=== PATIENT | female | born 1975 | race Caucasian/White ===

== ENCOUNTER 2021-10-31 12:13 | Outpatient (REF) | payer OTHER, SELFPAY ==
[2021-10-31 15:33] LABS: Influenza A PCR NEGATIVE (Negative); Influenza B PCR NEGATIVE (Negative); Resp Syncy Virus RNA Qual PCR NEGATIVE (Negative); SARS COV2 PCR INHOUSE POSITIVE (Negative)
== END 2021-10-31 12:14 | disposition home or self-care (01) ==
LOC: HO.LAB 12:13
PROVIDERS: Visit Provider Hospitalist
DX: R68.89 Other general symptoms and signs (principal); Z20.822 Contact with and (suspected) exposure to COVID-19
CPT/HCPCS: 0241U

== ENCOUNTER 2022-02-21 14:37 | Outpatient (REF) | payer OTHER, SELFPAY ==
[2022-02-21 15:11] LABS: Appearance Urine CLOUDY; Color Urine DK YELLOW; Glucose Urine UA NEG (NEG); Leukocyte Esterase Urine NEG (NEG); Nitrite Urine NEG (NEG); Specific Gravity - Urine 1.025 (1.005-1.025); Urine Blood 2+ (NEG); Urine Ketones 5 MG/DL (NEG); Urine Protein TRACE MG/DL (NEG-TRACE)
[2022-02-21 15:23] LABS: Bacteria Urine 1+ /LPF; Mucus Urine 4+ /LPF; RBC Urine 0-2 /HPF (0); Squamous Epithelial Cell Urine 3+ /LPF
[2022-02-21 15:24] LABS: Calcium Oxalate Crystals Urine 3+ /LPF; Granular Casts Urine 0-2 /LPF
== END 2022-02-21 14:38 | disposition home or self-care (01) ==
LOC: HO.LNP 14:37
PROVIDERS: Visit Provider Hospitalist
DX: Z00.00 Encounter for general adult medical examination without abnormal findings (principal)
CPT/HCPCS: 81001; 81003

== ENCOUNTER 2022-03-09 07:04 | Outpatient (REF) | payer OTHER, SELFPAY ==
[2022-03-09 11:12] LABS: Appearance Urine CLEAR; Color Urine YELLOW; Glucose Urine UA NEG (NEG); Leukocyte Esterase Urine TRACE (NEG); Nitrite Urine NEG (NEG); Specific Gravity - Urine 1.015 (1.005-1.025); Urine Blood NEG (NEG); Urine Ketones NEG (NEG); Urine Protein NEG (NEG-TRACE)
[2022-03-09 11:23] LABS: MANUAL DIFF FLAG NO
[2022-03-09 11:30] LABS: Basophils Absolute Auto 0.1 X10*3/uL (0.0-0.2); Basophils Percent Auto 0.6 % (0-2); Eosinophils Absolute Auto 0.2 X10*3/uL (0.0-0.4); Eosinophils Percent Auto 1.9 % (0-4); Hematocrit 31.8 % (37.0-47.0); Hemoglobin 9.2 g/dl (12.0-16.0); Imm Gran Abs Auto 0.02 X10*3/uL (0.00-0.03); Imm Gran Pct Auto 0.3 % (0.0-0.4); Lymphocytes Absolute Auto 1.6 X10*3/uL (1.2-4.9); Lymphocytes Percent Auto 20.1 % (20-40); Mean Corpuscular HGB Conc 28.9 g/dl (31.0-35.0); Mean Corpuscular Hemoglobin 18.5 pg (27.0-33.0); Mean Platelet Volume 9.9 fL (9.4-12.3); Monocytes Absolute Auto 0.5 X10*3/uL (0.1-1.2); Monocytes Percent Auto 6.3 % (2-11); Neutrophils Absolute Auto 5.6 x10*3/uL (2.0-8.3); Neutrophils Percent Auto 70.8 % (45-73); Platelet Count 434 X10*3/uL (160-400); Red Blood Count 4.96 X10*6/uL (4.20-5.50); Red Cell Distribution Width 21.6 % (11.0-16.0); White Blood Count 7.9 X10*3/uL (4.8-10.8)
[2022-03-09 11:31] LABS: Mean Corpuscular Volume 64.1 fL (80.0-98.0)
[2022-03-09 11:40] LABS: Alanine Aminotransferase 13 U/L (0-31); Albumin Level 4.1 g/dL (3.5-5.0); Alkaline Phosphatase 80 U/L (39-117); Anion Gap 11 (12-20); Aspartate Amino Transferase 11 U/L (5-31); Bilirubin Total 0.3 mg/dL (0.0-1.0); Blood Urea Nitrogen 12 mg/dL (9-16); Calcium 9.1 mg/dL (8.4-10.2); Carbon Dioxide 25 mmol/L (22-29); Chloride 107 mmol/L (96-108); Cholesterol 210 mg/dL; Estimated Glomerular Filt Rate > 60; Glucose Fasting 114 mg/dL (60-99); HDL Cholesterol 42 mg/dL; LDL Cholesterol Calculated 149 mg/dl; Potassium 4.3 mmol/L (3.3-5.1); Sodium 139 mmol/L (135-145); Total Protein 6.9 g/dL (6.5-8.0); Triglycerides 98 mg/dL
[2022-03-09 11:50] LABS: Bacteria Urine 2+ /LPF; Calcium Oxalate Crystals Urine TRACE /LPF; Squamous Epithelial Cell Urine 2+ /LPF
[2022-03-09 11:51] LABS: RBC Urine 0 /HPF (0)
[2022-03-09 12:04] LABS: TSH reflex Free T4 1.74 uIU/mL (0.32-4.0)
== END 2022-03-09 07:05 | disposition home or self-care (01) ==
LOC: HO.WFDLDS 07:04
PROVIDERS: PCP Hospitalist; Visit Provider Family Medicine
DX: Z00.00 Encounter for general adult medical examination without abnormal findings (principal); Z13.220 Encounter for screening for lipoid disorders; Z13.29 Encounter for screening for other suspected endocrine disorder
CPT/HCPCS: 36415; 80053; 80061; 81001; 84443; 85025

== ENCOUNTER 2022-03-12 08:00 | Outpatient (REF) | payer OTHER, SELFPAY ==
[2022-03-12 11:35] LABS: Hematocrit 31.3 % (37.0-47.0); Mean Corpuscular HGB Conc 28.8 g/dl (31.0-35.0); Mean Corpuscular Hemoglobin 18.4 pg (27.0-33.0); Mean Platelet Volume 9.8 fL (9.4-12.3); Platelet Count 437 X10*3/uL (160-400); Red Blood Count 4.89 X10*6/uL (4.20-5.50); Red Cell Distribution Width 21.5 % (11.0-16.0); White Blood Count 6.9 X10*3/uL (4.8-10.8)
[2022-03-12 11:48] LABS: Appearance Urine HAZY; Color Urine YELLOW; Glucose Urine UA NEG (NEG); Leukocyte Esterase Urine TRACE (NEG); Nitrite Urine NEG (NEG); PH 6.5 (5.0-8.0); Specific Gravity - Urine 1.015 (1.005-1.025); Urine Blood NEG (NEG); Urine Ketones NEG (NEG); Urine Protein NEG (NEG-TRACE)
[2022-03-12 12:08] LABS: Iron 18 mcg/dL (30-160); Percent Iron Saturation 4 % (15-50); Total Iron Binding Capacity 484 mcg/dL (228-428); Unsaturated Iron Binding 466 ug/dL
[2022-03-12 12:31] LABS: Folate 10.3 ng/mL (> or = 4.0); Vitamin B12 469 pg/mL (200-900)
[2022-03-12 13:23] LABS: Bacteria Urine 3+ /LPF; RBC Urine 0 /HPF (0); Renal Epithelial Cells Urine 2+ /LPF; Squamous Epithelial Cell Urine 3+ /LPF
== END 2022-03-12 08:01 | disposition home or self-care (01) ==
LOC: HO.WFDLDS 08:00
PROVIDERS: Visit Provider Hospitalist
DX: Z00.00 Encounter for general adult medical examination without abnormal findings (principal); D64.9 Anemia, unspecified
CPT/HCPCS: 36415; 81001; 81003; 82607; 82746; 83540; 85027

== ENCOUNTER 2022-03-20 07:56 | Outpatient (REF) | payer OTHER, SELFPAY ==
[2022-03-20 11:33] LABS: Hematocrit 33.2 % (37.0-47.0); Hemoglobin 9.5 g/dl (12.0-16.0); Mean Corpuscular HGB Conc 28.6 g/dl (31.0-35.0); Mean Corpuscular Hemoglobin 18.9 pg (27.0-33.0); Mean Platelet Volume 10.4 fL (9.4-12.3); Platelet Count 441 X10*3/uL (160-400); Red Blood Count 5.03 X10*6/uL (4.20-5.50); Red Cell Distribution Width 24.4 % (11.0-16.0); White Blood Count 8.2 X10*3/uL (4.8-10.8)
[2022-03-20 11:40] LABS: Appearance Urine CLEAR; Color Urine YELLOW; Glucose Urine UA NEG (NEG); Leukocyte Esterase Urine NEG (NEG); Nitrite Urine NEG (NEG); Specific Gravity - Urine 1.025 (1.005-1.025); Urine Blood NEG (NEG); Urine Ketones NEG (NEG); Urine Protein NEG (NEG-TRACE)
== END 2022-03-20 07:57 | disposition home or self-care (01) ==
LOC: HO.WFDLDS 07:56
PROVIDERS: Visit Provider Hospitalist
DX: Z00.00 Encounter for general adult medical examination without abnormal findings (principal)
CPT/HCPCS: 36415; 81003; 85027

== ENCOUNTER 2023-05-15 08:25 | Outpatient (AMB) | payer OTHER, SELFPAY ==
--- NOTE | 2023-05-15 08:31 | A.OFFPC_ITS ---
Vital Signs 05/15/23 08:32 Height 5 ft 2 in Weight 189 lb BMI 34.6 BP 132/78 Blood Pressure Location Lt brachial Position Sitting Respiration 14 Pulse 89 Pulse Source Pulse Oximeter Temp 98.9 F Temp Source Temporal Artery Scan Pulse Oximetry (%) 98 Oxygen Delivery Method Room Air Intake Visit Reasons: 1 mos anxiety, depression Intake Note: Patient is here to follow up on her anxiety and depression and states the medication increase is doing well. Patient states she is still struggling with sleeping at night due to life stressors. Foreclosure Paralegal Required: No Allergies No Known Allergies Allergy (Verified 05/15/23 08:43) Medication List - Last Reconciled 05/15/23 by Bunny Lamas CNP buspirone 20 mg (2 x 10 mg) PO TID 30 days duloxetine 60 mg PO DAILY 30 days melatonin 3 mg PO BEDTIME Tobacco use date assessed: 04/17/23 Dental Screening Dental Screen Date: 05/15/23 Did you have a dental visit in the last 12 months?: No Did you have a dental problem in the last 6 months where you did not have access to dental care?: No Was dental information given to patient?: Patient has dentist HPI HPI Comments History of Present Illness Details 47-year-old female presents for anxiety and depression follow-up She was evaluated for these symptoms on 04/17/2023. Buspirone was increased to 20 mg 3 times a day. She is on duloxetine 60 mg daily. 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 She was also referred to a therapist. She reports significant improvement with increased Buspirone dose. She states that she takes her medications as prescribed. She reports interrupted sleep and vivid dreams. She takes melatonin at bedtime with improvement. She admits to using her phone and watching TV while in bed. She stretches and walks for exercise. She notes that she was contacted by Gynecology and therapist but she has not called back to schedule an appointment. [facility] Medical History Hepatitis C Social History Housing: House Patient Tobacco Use Status: Former Tobacco user Tobacco use type: Cigarette Cigarettes Per Day: 10 Years Smoked: 13 e-Cigarette/Vaping Use: Currently Using Second Hand Smoke Exposure: No service: No Current occupational status: employed Current occupation: [employer] Current occupational exposures/hazards: No Cognitive needs: No Hearing needs: No Vision needs: No Questionnaire PHQ-9 Over the last 2 weeks, how often have you been bothered by any of the following problems? 1. Little interest or pleasure in doing things: several days 2. Feeling down, depressed, or hopeless: several days 3. Trouble falling or staying asleep, or sleeping too much: nearly every day 4. Feeling tired or having little energy: more than half the days 5. Poor appetite or overeating: several days 6. Feeling bad about yourself - or that you are a failure or have let yourself or your family down: more than half the days 7. Trouble concentrating on things, such as reading the newspaper or watching television: nearly every day 8. Moving or speaking so slowly that other people could have noticed. Or the opposite - being so fidgety or restless that you have been moving around a lot more than usual: several days 9. Thoughts that you would be better off or of hurting yourself in some w ay: not at all Total score: 14 Depression Screening Interpretation: Positive Depression Screening Follow-up: Existing condition and In treatment 61663 - PHQ-9 Billing: Yes Source: Developed by Drs. Humberto Gutiérrez, Gail Jauregui, Don Madsen and colleagues, with an educational jessika from [employer]. Thrive Questionnaire Date Thrive assessed: 02/21/22 JUAN-7 AMB Questionnaire JUAN-7 Date JUAN - 7 assessed: 05/15/23 Feeling nervous, anxious, or on edge: 1 = Several days Not being able to stop or control worryin = Nearly every day Worrying too much about different things: 3 = Nearly every day Trouble relaxin = Nearly every day Being so restless that it is hard to sit still: 2 = More than half the days Becoming easily annoyed or irritable: 2 = More than half the days Feeling afraid as if something awful might happen: 2 = More than half the days Total JUAN-7 score (0-4 normal; 5-9 mild; 10-14 moderate; 15-21 severe): 16 Source: Developed by Drs. Humberto Gutiérrez, Don Schafernke and colleagues, with an educational jessika from [employer]. JUAN-7 Assessment Billing JUAN-7 Assessment Tool: JUAN-7 Assessment 54753 Review of Systems Const Details: Const Denies chills, Denies fatigue, Denies fever(s), Denies headache(s) and Denies weakness ENT Denies dizziness and Denies headache(s) Card Denies chest pain, Denies lightheadedness, Denies dyspnea and Denies other (Palpitations) Resp Denies cough, Denies dyspnea, Denies wheezing and Denies other ( shortness of breath) GI Denies abdominal pain, Denies melena, Denies hematochezia, Denies change in bowel habits, Denies dyspepsia and Denies nausea Denies hematuria and Denies dysuria Musc Denies abnormal gait, Denies myalgias, Denies arthralgias, Denies numbness and Denies tingling Skin/Breast Denies rash, Denies unusual bruising and Denies wounds Neuro Denies abnormal gait, Denies dizziness, Denies headache(s), Denies memory loss, Denies numbness, Denies Sensory deficit (Neuro), Denies tingling and Denies weakness Psych Reports anxiety and Reports depression, Denies memory loss Endo Denies fatigue Aller/Immun Denies wheezing Physical exam (Primary Care) Vital Signs: Last Vital Signs Temp 98.9 F 05/15/23 08:32 Pulse 89 05/15/23 08:32 Resp 14 05/15/23 08:32 BP 132/78 05/15/23 08:32 Pulse Ox 98 05/15/23 08:32 Oxygen Delivery Method Room Air 05/15/23 08:32 BMI result Body Mass Index 34.6 Tobacco/Smoking Status: Tobacco use Status Tobacco use date assessed 04/17/23 05/15/23 08:38 Patient Tobacco Use Status Former Tobacco user 05/15/23 08:38 Tobacco use type Cigarette 05/15/23 08:38 e-Cigarette/Vaping Use Currently Using 05/15/23 08:38 PHQ-9: PHQ-9 Score PHQ-9: Total score 14 05/15/23 08:49 Depression Screening Interpretation: Positive Depression Screening Follow-up: Existing condition and In treatment Thrive Assessment: Date of Thrive Assessment Date Thrive assessed 02/21/22 05/15/23 08:38 Const Other: General: no acute distress and well developed Nutritional Appearance: well nourished Orientation/consciousness: patient oriented x3 HENMT Head: Yes normocephalic and Yes atraumatic Eyes General: appearance normal, both eyes and all related structures Pupils: Equal, round and reactive pupils present EOM: EOMs intact bilaterally Resp Effort & Inspection: normal respiratory effort Auscultation: clear to auscultation bilaterally Cardio Rate: regular rate Rhythm: regular rhythm Heart sounds: S1 normal heart sound present, S2 normal heart sound present, no gallops, no murmurs and no rubs GI Palpation (GI): No Abdominal aortic bruit present, Soft to palpation, nontender, No hepatosplenomegaly present and No Rebound tenderness present Auscultation: normal bowel sounds General: Yes no CVA tenderness Back/Spine/Pelvis Back: no CVA tenderness Cervical Spine: cervical ROM normal and No Cervical spine tenderness Thoracic/Lumbar Spine: thoraco-lumbar ROM normal, No pain with thoraco-lumbar ROM, No thoracic spinal tenderness and No lumbar spinal tenderness Extrem General: Yes normal to inspection, No edema and No calf tenderness Skin General: warm and dry. Normal skin color. Normal skin turgor Lesions: no lesions Rashes: no rashes Trauma: no lacerations or abrasions Wounds: no wounds Nails: normal Neuro General: patient oriented x3, gait normal and no focal neuro deficit Cranial nerves: Yes Equal, round and reactive pupils present Cognition (Neuro): normal cognition Gait exam (Neuro): Normal gait present Sensory Exam: No Sensory deficit (Neuro) Psych Appearance: grossly normal Affect: normal affect Attitude: cooperative Thought process: Normal thought process present Assessment and Plan Assessment & Plan (1) Anxiety: Code(s): F41.9 - Anxiety disorder, unspecified Plan: PHQ-9 and JUAN-7 scores revealed moderately severe depression and severe anxiety Continue to take buspirone and duloxetine as prescribed Routine exercise, including cardio encouraged Encouraged to schedule appointment with therapist and gynecology Follow-up with PCP in 2 months or return sooner with worsening or new symptoms Verbalized understanding and agreed with treatment plan. (2) Depression: Code(s): F32.A - Depression, unspecified Plan: As above (3) Laboratory tests ordered as part of a complete physical exam (CPE): Code(s): Z00.00 - Encounter for general adult medical examination without abnormal findings Plan: Fasting labs ordered as part of a complete physical exam. Advised to fast for at least 10 hours before getting labs drawn. May drink water Verbalized understanding and agreed with treatment plan. (4) Sleep disturbance: Code(s): G47.9 - Sleep disorder, unspecified Plan: She reports significant improvement with increased Buspirone dose. She states that she takes her medications as prescribed. She reports interrupted sleep and vivid dreams. She takes melatonin at bedtime with improvement. She admits to using her phone and watching TV while in bed. Good sleep hygiene instructed Continue to take melatonin as needed Follow up with worsening or new symptoms Verbalized understanding and agreed with the treatment plan. Orders: Orders Comprehensive [place]. Panel Fast Today F32.A - Depression, unspecified, Z00.00 - Encounter for general adult medical examination without abnormal findings Lipid Panel Today D64.9 - Anemia, unspecified, Z00.00 - Encounter for general adult medical examination without abnormal findings TSH reflex Free T4 Today D64.9 - Anemia, unspecified, Z00.00 - Encounter for general adult medical examination without abnormal findings Complete Blood Count Auto Diff Today D64.9 - Anemia, unspecified, Z00.00 - Encounter for general adult medical examination without abnormal findings Coding Level of Care Code Est Pt Level 3 (59216) Diagnoses Anxiety F41.9 Depression F32.A Laboratory tests ordered as part of a complete physical exam (CPE) Z00.00 Sleep disturbance G47.9 Additional Codes JUAN-7 Assessment Billing - JUAN-7 Assessment Tool: JUAN-7 Assessment 18426 ([id number]) Time Spent (min) 25
[2023-05-15 08:32] VITALS: BP 132/78; PULSE 89; RESP 14; TEMP 37.2; O2SAT 98; BMI 34.6
== END 2023-05-15 09:10 | disposition home or self-care (01) ==
PROVIDERS: PCP Hospitalist; Visit Provider Nurse Practitioner Family
DX: F41.9 Anxiety disorder, unspecified (principal); F32.A Depression, unspecified; G47.9 Sleep disorder, unspecified
CPT/HCPCS: 96127; 99213

== ENCOUNTER 2023-12-02 08:56 | Outpatient (AMB) | payer BC, SELFPAY ==
--- NOTE | 2023-12-02 08:59 | A.OFFPC_ITS ---
Vital Signs 12/02/23 09:00 12/02/23 09:22 Height 5 ft 2 in Weight 201 lb 6 oz BMI 36.8 BP 140/86 H 150/90 H Blood Pressure Location Rt brachial Rt brachial Position Sitting Respiration 14 Pulse 81 Pulse Source Pulse Oximeter Temp 97.3 F Temp Source Temporal Artery Scan Pulse Oximetry (%) 99 Oxygen Delivery Method Room Air Intake Visit Reasons: Transfer Of Care SV J2Ee Application Developer Required: No Accompanied by: Self / Same As Patient Allergies No Known Allergies Allergy (Verified 12/02/23 09:12) Medication List - Last Reconciled 12/02/23 by Bunny Lamas CNP buspirone 20 mg (2 x 10 mg) PO TID 30 days duloxetine 60 mg PO DAILY 90 days melatonin 3 mg PO BEDTIME PRN Tobacco use date assessed: 12/02/23 Dental Screening Dental Screen Date: 12/02/23 Did you have a dental visit in the last 12 months?: No Did you have a dental problem in the last 6 months where you did not have access to dental care?: No Was dental information given to patient?: Patient has dentist HPI HPI Comments History of Present Illness Details 28-year-old female presents for transfer of care follow-up Her former PCP is YULISSA who has no longer with the practice She admits to taking her medications as prescribed without adverse reactions and controlled symptoms. She attributes her depression symptoms to work burn-out which she has been managing well She notes that she never followed up to schedule an appointment for a therapist. She requests a new referral for a therapist She has labs ordered but has not had blood work done in over 20 months She denies acute symptoms at this time [facility] Medical History (Updated 12/02/23 @ 09:28 by Bunny Lamas CNP) Hepatitis C Surgical History (Updated 12/02/23 @ 09:07 by Anamaria Peterson MA) No pertinent past surgical history Family History Other Mental health disorder Substance abuse Social History Housing: House Patient Tobacco Use Status: Former Tobacco user Tobacco use type: Cigarette Cigarettes Per Day: 10 Years Smoked: 13 e-Cigarette/Vaping Use: Currently Using Second Hand Smoke Exposure: No service: No Current occupational status: employed Current occupation: [employer] Current occupational exposures/hazards: No Cognitive needs: No Hearing needs: No Vision needs: No Questionnaire PHQ-9 Over the last 2 weeks, how often have you been bothered by any of the following problems? 1. Little interest or pleasure in doing things: several days 2. Feeling down, depressed, or hopeless: more than half the days 3. Trouble falling or staying asleep, or sleeping too much: nearly every day 4. Feeling tired or having little energy: more than half the days 5. Poor appetite or overeating: several days 6. Feeling bad about yourself - or that you are a failure or have let yourself or your family down: several days 7. Trouble concentrating on things, such as reading the newspaper or watching television: several days 8. Moving or speaking so slowly that other people could have noticed. Or the opposite - being so fidgety or restless that you have been moving around a lot more than usual: not at all 9. Thoughts that you would be better off or of hurting yourself in some w ay: not at all Total score: 11 Depression Screening Interpretation: Positive Depression Screening Follow-up: Existing condition and In treatment Depression Screening Done: Yes 02866 - PHQ-9 Billing: Yes Source: Developed by Drs. Humberto Gutiérrez, Gail Jauregui, Don Madsen and colleagues, with an educational jessika from [employer]. Thrive Questionnaire Date Thrive assessed: 12/02/23 I am a: Patient What is your living situation today?: I have a steady place to live Within the past 12 months, did the food you bought not last and you didn't have the money to get more?: Never true Within the past 12 months, did you worry whether your food would run out before you got money to buy more?: Never true Do you have trouble paying for medicines?: No Do you have trouble getting transportation to medical appointments?: No Do you have trouble paying your heating and electricity bill?: No Do you have trouble taking care of your child, family member or friend?: No Do you have trouble with day-to-day activities such as bathing, preparing meals, shopping, managing finances, etc.?: No Are you currently unemployed and looking for a job?: No Are you interested in more education?: No Please select the resources that you would like help with: None Currently or been in a relationship where the following occur: no concerns reported THRIVE Score: 0 AUDIT C Alcohol Use Questionnaire (AUDIT-C) 1. How often do you have a drink containing alcohol?: Never 3. How often do you have six or more drinks on one occasion?: Never Total Score: 0 JUAN-7 AMB Questionnaire JUAN-7 Date JUAN - 7 assessed: 12/02/23 Feeling nervous, anxious, or on edge: 2 = More than half the days Not being able to stop or control worryin = Nearly every day Worrying too much about different things: 3 = Nearly every day Trouble relaxin = More than half the days Being so restless that it is hard to sit still: 1 = Several days Becoming easily annoyed or irritable: 1 = Several days Feeling afraid as if something awful might happen: 0 = Not at all Total JUAN-7 score (0-4 normal; 5-9 mild; 10-14 moderate; 15-21 severe): 12 Source: Developed by Drs. Humberto Gutiérrez, Gail Jauregui, Don Madsen and colleagues, with an educational jessika from [employer]. JUAN-7 Assessment Billing JUAN-7 Assessment Tool: JUAN-7 Assessment 54023 Review of Systems Const Details: Const Denies chills, Denies fatigue, Denies fever(s), Denies headache(s) and Denies weakness ENT Denies dizziness and Denies headache(s) Card Denies chest pain, Denies lightheadedness, Denies dyspnea and Denies other (Palpitations) Resp Denies cough, Denies dyspnea, Denies wheezing and Denies other ( shortness of breath) GI Denies abdominal pain, Denies melena, Denies hematochezia, Denies change in bowel habits, Denies dyspepsia and Denies nausea Denies hematuria and Denies dysuria Musc Denies abnormal gait, Denies myalgias, Denies arthralgias, Denies numbness and Denies tingling Skin/Breast Denies rash, Denies unusual bruising and Denies wounds Neuro Denies abnormal gait, Denies dizziness, Denies headache(s), Denies memory loss, Denies numbness, Denies Sensory deficit (Neuro), Denies tingling and Denies weakness Psych Denies anxiety, Denies depression, Denies memory loss Endo Denies cold intolerance, Denies fatigue, Denies heat intolerance, Denies polydipsia and Denies polyuria Aller/Immun Denies wheezing Physical exam (Primary Care) Vital Signs: Last Vital Signs Temp 97.3 F 12/02/23 09:00 Pulse 81 12/02/23 09:00 Resp 14 12/02/23 09:00 BP 150/90 H 12/02/23 09:22 Pulse Ox 99 12/02/23 09:00 Oxygen Delivery Method Room Air 12/02/23 09:00 BMI result Body Mass Index 36.8 Tobacco/Smoking Status: Tobacco use Status Tobacco use date assessed 12/02/23 12/02/23 09:12 Patient Tobacco Use Status Former Tobacco user 12/02/23 09:12 Tobacco use type Cigarette 12/02/23 09:12 e-Cigarette/Vaping Use Currently Using 12/02/23 09:12 PHQ-9: PHQ-9 Score PHQ-9: Total score 11 12/02/23 09:20 Depression Screening Interpretation: Positive Depression Screening Follow-up: Existing condition and In treatment Thrive Assessment: Date of Thrive Assessment Date Thrive assessed 12/02/23 12/02/23 09:12 Currently or been in a relationship where the following occur: no concerns reported Const Other: General: no acute distress and well developed Nutritional Appearance: well nourished Orientation/consciousness: patient oriented x3 HENMT Head: Yes normocephalic and Yes atraumatic Eyes General: appearance normal, both eyes and all related structures Pupils: Equal, round and reactive pupils present EOM: EOMs intact bilaterally Resp Effort & Inspection: normal respiratory effort Auscultation: clear to auscultation bilaterally Cardio Rate: regular rate Rhythm: regular rhythm Heart sounds: S1 normal heart sound present, S2 normal heart sound present, no gallops, no murmurs and no rubs GI Palpation (GI): No Abdominal aortic bruit present, Soft to palpation, nontender, No hepatosplenomegaly present and No Rebound tenderness present Auscultation: normal bowel sounds General: Yes no CVA tenderness Back/Spine/Pelvis Back: no CVA tenderness Cervical Spine: cervical ROM normal and No Cervical spine tenderness Thoracic/Lumbar Spine: thoraco-lumbar ROM normal, No pain with thoraco-lumbar ROM, No thoracic spinal tenderness and No lumbar spinal tenderness Extrem General: Yes normal to inspection, No edema and No calf tenderness Skin General: warm and dry. Normal skin color. Normal skin turgor Neuro General: patient oriented x3, gait normal and no focal neuro deficit Cranial nerves: Yes Equal, round and reactive pupils present Cognition (Neuro): normal cognition Gait exam (Neuro): Normal gait present Sensory Exam: No Sensory deficit (Neuro) Psych Appearance: grossly normal Affect: normal affect Attitude: cooperative Thought process: Normal thought process present Assessment and Plan Assessment & Plan (1) Anxiety: Code(s): F41.9 - Anxiety disorder, unspecified Plan: Controlled symptoms with current treatment regimen PHQ-9 and JUAN-7 scores revealed moderate depression and anxiety Continue current treatment regimen Routine exercise encouraged She met with the community navigator who would refer her to a therapist Follow-up with worsening or new symptoms Verbalized understanding and agreed with treatment plan (2) Depression: Code(s): F32.A - Depression, unspecified Plan: As above (3) Elevated blood pressure reading in office without diagnosis of hypertension: Code(s): R03.0 - Elevated blood-pressure reading, without diagnosis of hypertension Plan: Resting blood pressure is 150/90, above goal of less than 140/90 Denies family history of hypertension and high salt diet Notes intermittent frontal and occipital headache especially when looking at her phone for prolonged period. No visual disturbances, dizziness, chest pain She wears prescription glasses. Last eye exam was over a year ago Advised to schedule an appointment with her eye doctor for an exam Check blood pressure daily, record readings, and bring to next appointment Encouraged to get blood work done before her next visit Follow-up with the nurse in 1 week for blood pressure check and PCP in 2 weeks for hypertension Return sooner with worsening or new symptoms Verbalized understanding and agreed with treatment plan Coding Level of Care Code Est Pt Level 4 (56005) Diagnoses Anxiety F41.9 Depression F32.A Elevated blood pressure reading in office without diagnosis of hypertension R03.0 Additional Codes JUAN-7 Assessment Billing - JUAN-7 Assessment Tool: JUAN-7 Assessment 60658 ([id number])
[2023-12-02 09:00] VITALS: BP 140/86; PULSE 81; RESP 14; TEMP 36.3; O2SAT 99; BMI 36.8
[2023-12-02 09:22] VITALS: BP 150/90
== END 2023-12-02 10:36 | disposition home or self-care (01) ==
PROVIDERS: PCP Nurse Practitioner Family; Visit Provider Nurse Practitioner Family
DX: F41.9 Anxiety disorder, unspecified (principal); F32.A Depression, unspecified; R03.0 Elevated blood-pressure reading, without diagnosis of hypertension
CPT/HCPCS: 96127; 99214

== ENCOUNTER 2023-12-13 08:37 | Outpatient (REF) | payer BC, SELFPAY ==
[2023-12-13 11:13] LABS: MANUAL DIFF FLAG NO
[2023-12-13 12:12] LABS: Basophils Percent Auto 0.7 % (0-2); Eosinophils Absolute Auto 0.1 X10*3/uL (0.0-0.4); Eosinophils Percent Auto 1.7 % (0-4); Hematocrit 35.3 % (37.0-47.0); Hemoglobin 10.8 g/dl (12.0-16.0); Imm Gran Abs Auto 0.05 X10*3/uL (0.00-0.03); Imm Gran Pct Auto 0.8 % (0.0-0.4); Lymphocytes Absolute Auto 1.2 X10*3/uL (1.2-4.9); Lymphocytes Percent Auto 20.5 % (20-40); Mean Corpuscular HGB Conc 30.6 g/dl (31.0-35.0); Mean Corpuscular Hemoglobin 20.8 pg (27.0-33.0); Mean Corpuscular Volume 67.9 fL (80.0-98.0); Monocytes Absolute Auto 0.3 X10*3/uL (0.1-1.2); Monocytes Percent Auto 5.7 % (2-11); Neutrophils Absolute Auto 4.2 x10*3/uL (2.0-8.3); Neutrophils Percent Auto 70.6 % (45-73); Platelet Count 403 X10*3/uL (160-400); Red Cell Distribution Width 23.8 % (11.0-16.0); White Blood Count 5.9 X10*3/uL (4.8-10.8)
[2023-12-13 12:17] LABS: Alanine Aminotransferase 19 U/L (0-31); Albumin Level 4.3 g/dL (3.5-5.0); Alkaline Phosphatase 85 U/L (39-117); Anion Gap 11 (12-20); Aspartate Amino Transferase 15 U/L (5-31); Bilirubin Total 0.3 mg/dL (0.0-1.0); Blood Urea Nitrogen 11 mg/dL (9-16); Carbon Dioxide 24 mmol/L (22-29); Chloride 107 mmol/L (96-108); Cholesterol 199 mg/dL (<200); Estimated Glomerular Filt Rate > 60; Glucose Fasting 108 mg/dL (60-99); HDL Cholesterol 44 mg/dL (>40); LDL Cholesterol Calculated 132 mg/dL (<100); Potassium 3.9 mmol/L (3.3-5.1); Sodium 138 mmol/L (135-145); Total Protein 7.2 g/dL (6.5-8.0); Triglycerides 118 mg/dL (<150)
== END 2023-12-13 08:38 | disposition home or self-care (01) ==
LOC: HO.WFDLDS 08:37
PROVIDERS: Visit Provider Nurse Practitioner Family
DX: Z00.00 Encounter for general adult medical examination without abnormal findings (principal); D64.9 Anemia, unspecified; F32.A Depression, unspecified
CPT/HCPCS: 36415; 80053; 80061; 84443; 85025

== ENCOUNTER 2023-12-16 10:21 | Outpatient (AMB) | payer BC, SELFPAY ==
--- NOTE | 2023-12-16 10:29 | A.OFFPC_ITS ---
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 Accompanied by: Self / Same As Patient Allergies No Known Allergies Allergy (Verified 12/16/23 10:48) Medication List - Last Reconciled 12/16/23 by Bunny Lamas CNP buspirone 20 mg (2 x 10 mg) PO TID 30 days duloxetine 60 mg PO DAILY 90 days melatonin 3 mg PO BEDTIME PRN Tobacco use date assessed: 12/02/23 Dental Screening Dental Screen Date: 12/16/23 Did you have a dental visit in the last 12 months?: No Did you have a dental problem in the last 6 months where you did not have access to dental care?: No Was dental information given to patient?: Patient has dentist HPI HPI Comments History of Present Illness Details 48-year-old female presents for elevated blood pressure follow-up Her blood pressure was found to be elevated at her last visit, 150/90 She followed up for nurse visit for blood pressure check on 12/09/2023. Initial blood pressure was 148/82; resting blood pressure was 130/72 Her home BP record for the past 1 month is between 128-188/78-118 She reports right sided headache which started an hour ago. No visual disturbances, dizziness/lightheadedness, nausea, or vomiting. She notes intermittent headaches without the past 2 weeks She has history of iron deficiency anemia, was on ferrous sulfate, but has not taken the medication for a long time She recently found out her mother, MGM, and brother have history of HTN PFSH Medical History (Updated 12/16/23 @ 11:12 by Bunny Lamas CNP) Hepatitis C Surgical History (Updated 12/02/23 @ 09:07 by Anamaria Peterson MA) No pertinent past surgical history Family History Other Mental health disorder Substance abuse Social History Housing: House Patient Tobacco Use Status: Former Tobacco user Tobacco use type: Cigarette Cigarettes Per Day: 10 Years Smoked: 13 e-Cigarette/Vaping Use: Currently Using Second Hand Smoke Exposure: No service: No Current occupational status: employed Current occupation: [employer] Current occupational exposures/hazards: No Cognitive needs: No Hearing needs: No Vision needs: No Questionnaire Thrive Questionnaire Date Thrive assessed: 12/02/23 JUAN-7 AMB Questionnaire JUAN-7 Date JUAN - 7 assessed: 12/02/23 Source: Developed by Drs. Humberto Gutiérrez, Gail Jauregui, Don Madsen and colleagues, with an educational jessika from [email or web address]. Review of Systems Const Details: Const Denies chills, Denies fatigue, Denies fever(s), Reports headache(s) and Denies weakness ENT Denies dizziness and Reports headache(s) Card Denies chest pain, Denies lightheadedness, Denies dyspnea and Denies other (Palpitations) Resp Denies cough, Denies dyspnea, Denies wheezing and Denies other ( shortness of breath) GI Denies abdominal pain, Denies melena, Denies hematochezia, Denies change in bowel habits, Denies dyspepsia and Denies nausea Denies hematuria and Denies dysuria Musc Denies abnormal gait, Denies myalgias, Denies arthralgias, Denies numbness and Denies tingling Skin/Breast Denies rash, Denies unusual bruising and Denies wounds Neuro Denies abnormal gait, Denies dizziness, Denies headache(s), Denies memory loss, Denies numbness, Denies Sensory deficit (Neuro), Denies tingling and Denies weakness Psych Denies anxiety, Denies depression, Denies memory loss Endo Denies cold intolerance, Denies fatigue, Denies heat intolerance, Denies polydipsia and Denies polyuria Aller/Immun Denies wheezing Physical exam (Primary Care) Tobacco/Smoking Status: Tobacco use Status Tobacco use date assessed 12/02/23 12/02/23 09:12 Patient Tobacco Use Status Former Tobacco user 12/02/23 09:12 Tobacco use type Cigarette 12/02/23 09:12 e-Cigarette/Vaping Use Currently Using 12/02/23 09:12 Thrive Assessment: Date of Thrive Assessment Date Thrive assessed 12/02/23 12/09/23 09:45 Const Other: General: no acute distress and well developed Nutritional Appearance: well nourished Orientation/consciousness: patient oriented x3 HENMT Head: Yes normocephalic and Yes atraumatic Eyes General: appearance normal, both eyes and all related structures Pupils: Equal, round and reactive pupils present EOM: EOMs intact bilaterally Resp Effort & Inspection: normal respiratory effort Auscultation: clear to auscultation bilaterally Cardio Rate: regular rate Rhythm: regular rhythm Heart sounds: S1 normal heart sound present, S2 normal heart sound present, no gallops, no murmurs and no rubs GI Palpation (GI): No Abdominal aortic bruit present, Soft to palpation, nontender, No hepatosplenomegaly present and No Rebound tenderness present Auscultation: normal bowel sounds General: Yes no CVA tenderness Back/Spine/Pelvis Back: no CVA tenderness Cervical Spine: cervical ROM normal and No Cervical spine tenderness Thoracic/Lumbar Spine: thoraco-lumbar ROM normal, No pain with thoraco-lumbar ROM, No thoracic spinal tenderness and No lumbar spinal tenderness Extrem General: Yes normal to inspection, No edema and No calf tenderness Skin General: warm and dry. Normal skin color. Normal skin turgor Neuro General: patient oriented x3, gait normal and no focal neuro deficit Cranial nerves: Yes Equal, round and reactive pupils present Cognition (Neuro): normal cognition Gait exam (Neuro): Normal gait present Sensory Exam: No Sensory deficit (Neuro) Psych Appearance: grossly normal Affect: normal affect Attitude: cooperative Thought process: Normal thought process present Assessment and Plan Assessment & Plan (1) Hypertension: Code(s): I10 - Essential (primary) hypertension Qualifiers: Hypertension type: primary hypertension Qualified Code(s): I10 - Essential (primary) hypertension Plan: Resting blood pressure is 150/100, above goal of less than 140/90 Amlodipine ordered. Take as prescribed. Instructed on adverse reactions on amlodipine to report Instructed on symptoms of hypotension to report Routine exercise encouraged Advised to monitor blood pressure daily, record readings, and bring to next appointment Advised to report blood pressure readings consistently below 100/60 Follow-up in 2 weeks or return sooner with symptoms or concerns Verbalized understanding and agreed with treatment plan (2) Iron deficiency anemia: Code(s): D50.9 - Iron deficiency anemia, unspecified Qualifiers: Iron deficiency anemia type: other iron deficiency Qualified Code(s): D50.8 - Other iron deficiency anemias Plan: Recent lab results reviewed with the patient H/H and MCV levels are low, 10.8/35.3 and 67.9 respectively Ferrous sulfate ordered. Take as prescribed. Instructed on adverse reactions t o report Adequate hydration and Healthy diet including fruits and vegetables encouraged to prevent constipation Will check iron profile and ferritin levels Will recheck CBC, iron profile, and ferritin levels in 6 weeks Verbalized understanding and agreed with the treatment plan (3) Elevated fasting glucose: Code(s): R73.01 - Impaired fasting glucose Plan: Recent fasting glucose is elevated, 108 Will repeat fasting glucose. Advised to fast for 10-12 hours, may drink water only, and get blood work done before her next visit Verbalized understanding and agreed with the plan (4) Elevated LDL cholesterol level: Code(s): E78.00 - Pure hypercholesterolemia, unspecified Plan: Recent LDL level is slightly elevated, 132 Advised to limit foods high in saturated fat and avoid foods high in trans fat Routine exercise encouraged Will continue to monitor Verbalized understanding and agreed treatment plan (5) Headache: Code(s): R51.9 - Headache, unspecified Plan: Likely due to hypertension Take amlodipine as prescribed May take Tylenol ibuprofen as needed Follow-up with worsening or new symptoms Verbalized understanding and agreed with treatment plan Orders: Orders Ferritin Today D50.9 - Iron deficiency anemia, unspecified Glucose Fasting Today R73.01 - Impaired fasting glucose UA CC w/rflx Micro + Cult Today Z00.00 - Encounter for general adult medical examination without abnormal findings IRON PROFILE Today D50.9 - Iron deficiency anemia, unspecified Complete Blood Count no Diff 6 Weeks D50.9 - Iron deficiency anemia, unspecified Medications: New amlodipine 5 mg PO DAILY 30 tabs 3RF 30 days ferrous sulfate 325 mg PO DAILY 30 tabs 3RF 30 days Coding Level of Care Code Est Pt Level 4 (39423) Diagnoses Primary hypertension I10 Hypertension type: primary hypertension Other iron deficiency anemia D50.8 Iron deficiency anemia type: other iron deficiency Elevated fasting glucose R73.01 Elevated LDL cholesterol level E78.00 Headache R51.9
[2023-12-16 10:30] VITALS: BP 150/90; PULSE 87; RESP 13; TEMP 36.5; O2SAT 99; BMI 36.7
[2023-12-16 10:50] VITALS: BP 150/100
== END 2023-12-16 11:08 | disposition home or self-care (01) ==
PROVIDERS: PCP Nurse Practitioner Family; Visit Provider Nurse Practitioner Family
DX: I10 Essential (primary) hypertension (principal); D50.8 Other iron deficiency anemias; R73.01 Impaired fasting glucose; E78.00 Pure hypercholesterolemia, unspecified; R51.9 Headache, unspecified
CPT/HCPCS: 99214

== ENCOUNTER 2023-12-16 11:14 | Outpatient (REF) | payer BC, SELFPAY ==
[2023-12-16 14:15] LABS: Appearance Urine Clear; Color Urine Yellow; Glucose Urine UA Negative (Negative); Leukocyte Esterase Urine Negative (Negative); Nitrite Urine Negative (Negative); PH 7.5 (5.0-9.0); Specific Gravity - Urine 1.015 (1.005-1.025); Urine Blood Negative (Negative); Urine Ketones Negative (Negative); Urine Protein Negative (Neg-Trace)
[2023-12-16 14:33] LABS: Iron 27 mcg/dL (30-160); Percent Iron Saturation 7 % (15-50); Total Iron Binding Capacity 403 mcg/dL (228-428); Unsaturated Iron Binding 376 ug/dL
[2023-12-16 14:46] LABS: Ferritin 2 ng/mL (10-250)
== END 2023-12-16 11:15 | disposition home or self-care (01) ==
LOC: HO.WFDLDS 11:14
PROVIDERS: Visit Provider Nurse Practitioner Family
DX: Z00.00 Encounter for general adult medical examination without abnormal findings (principal); D50.9 Iron deficiency anemia, unspecified
CPT/HCPCS: 36415; 81003; 82728; 83540

== ENCOUNTER 2023-12-27 07:33 | Outpatient (REF) | payer BC, SELFPAY ==
[2023-12-27 11:39] LABS: Hematocrit 39.5 % (37.0-47.0); Hemoglobin 12.2 g/dl (12.0-16.0); Mean Corpuscular HGB Conc 30.9 g/dl (31.0-35.0); Mean Corpuscular Hemoglobin 21.7 pg (27.0-33.0); Mean Corpuscular Volume 70.4 fL (80.0-98.0); Platelet Count 399 X10*3/uL (160-400); Red Blood Count 5.61 X10*6/uL (4.20-5.50); Red Cell Distribution Width 26.5 % (11.0-16.0); White Blood Count 6.7 X10*3/uL (4.8-10.8)
[2023-12-27 11:48] LABS: Glucose Fasting 118 mg/dL (60-99)
== END 2023-12-27 07:34 | disposition home or self-care (01) ==
LOC: HO.WFDLDS 07:33
PROVIDERS: Visit Provider Nurse Practitioner Family
DX: R73.01 Impaired fasting glucose (principal); D50.9 Iron deficiency anemia, unspecified
CPT/HCPCS: 36415; 82947; 85027

== ENCOUNTER 2023-12-30 16:02 | Outpatient (AMB) | payer BC, SELFPAY ==
--- NOTE | 2023-12-30 16:06 | MHC.PC.OV ---
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 Required: No Accompanied by: Self / Same As Patient Allergies No Known Allergies Allergy (Verified 12/30/23 16:40) Medication List - Last Reconciled 12/30/23 by Bunny Lamas CNP amlodipine 5 mg PO DAILY 30 days buspirone 20 mg (2 x 10 mg) PO TID 30 days duloxetine 60 mg PO DAILY 90 days ferrous sulfate 325 mg PO DAILY 30 days melatonin 3 mg PO BEDTIME PRN Tobacco use date assessed: 12/02/23 Dental Screening Dental Screen Date: 12/30/23 Did you have a dental visit in the last 12 months?: No Did you have a dental problem in the last 6 months where you did not have access to dental care?: No Was dental information given to patient?: Patient has dentist HPI HPI Comments History of Present Illness Details 48-year-old female presents for hypertension follow-up She admits to taking her medications as prescribed without adverse reactions She notes that she checks her BP daily. Her BP over the last 1 week is between 127-172/87-108 She offers no complaints and denies acute symptoms at this time [facility] Medical History Hepatitis C Surgical History No pertinent past surgical history Family History Other Mental health disorder Substance abuse Social History Housing: House Patient Tobacco Use Status: Former Tobacco user Tobacco use type: Cigarette Cigarettes Per Day: 10 Years Smoked: 13 e-Cigarette/Vaping Use: Currently Using Second Hand Smoke Exposure: No service: No Current occupational status: employed Current occupation: [employer] Current occupational exposures/hazards: No Cognitive needs: No Hearing needs: No Vision needs: No Questionnaire Thrive Questionnaire Date Thrive assessed: 12/02/23 JUAN-7 AMB Questionnaire JUAN-7 Date JUAN - 7 assessed: 12/02/23 Source: Developed by Drs. Humberto Gutiérrez, Gail Jauregui, Don Madsen and colleagues, with an educational jessika from [employer]. Review of Systems Const Details: Const Denies chills, Denies fatigue, Denies fever(s), Denies headache(s) and Denies weakness ENT Denies dizziness and Denies headache(s) Card Denies chest pain, Denies lightheadedness, Denies dyspnea and Denies other (Palpitations) Resp Denies cough, Denies dyspnea, Denies wheezing and Denies other ( shortness of breath) GI Denies abdominal pain, Denies melena, Denies hematochezia, Denies change in bowel habits, Denies dyspepsia and Denies nausea Denies hematuria and Denies dysuria Musc Denies abnormal gait, Denies myalgias, Denies arthralgias, Denies numbness and Denies tingling Skin/Breast Denies rash, Denies unusual bruising and Denies wounds Neuro Denies abnormal gait, Denies dizziness, Denies headache(s), Denies memory loss, Denies numbness, Denies Sensory deficit (Neuro), Denies tingling and Denies weakness Psych Denies anxiety, Denies depression, Denies memory loss Endo Denies cold intolerance, Denies fatigue, Denies heat intolerance, Denies polydipsia and Denies polyuria Aller/Immun Denies wheezing Physical exam (Primary Care) Vital Signs: Last Vital Signs Temp 97.8 F 12/30/23 16:07 Pulse 78 12/30/23 16:07 Resp 13 12/30/23 16:07 BP 140/76 H 12/30/23 16:07 Pulse Ox 99 12/30/23 16:07 Oxygen Delivery Method Room Air 12/30/23 16:07 BMI result Body Mass Index 36.4 Tobacco/Smoking Status: Tobacco use Status Tobacco use date assessed 12/02/23 12/30/23 16:12 Patient Tobacco Use Status Former Tobacco user 12/30/23 16:12 Tobacco use type Cigarette 12/30/23 16:12 e-Cigarette/Vaping Use Currently Using 12/30/23 16:12 Thrive Assessment: Date of Thrive Assessment Date Thrive assessed 12/02/23 12/30/23 16:12 Const Other: General: no acute distress and well developed Nutritional Appearance: well nourished Orientation/consciousness: patient oriented x3 [facility] Head: Yes normocephalic and Yes atraumatic Eyes General: appearance normal, both eyes and all related structures Pupils: Equal, round and reactive pupils present EOM: EOMs intact bilaterally Resp Effort & Inspection: normal respiratory effort Auscultation: clear to auscultation bilaterally Cardio Rate: regular rate Rhythm: regular rhythm Heart sounds: S1 normal heart sound present, S2 normal heart sound present, no gallops, no murmurs and no rubs GI Palpation (GI): No Abdominal aortic bruit present, Soft to palpation, nontender, No hepatosplenomegaly present and No Rebound tenderness present Auscultation: normal bowel sounds General: Yes no CVA tenderness Back/Spine/Pelvis Back: no CVA tenderness Cervical Spine: cervical ROM normal and No Cervical spine tenderness Thoracic/Lumbar Spine: thoraco-lumbar ROM normal, No pain with thoraco-lumbar ROM, No thoracic spinal tenderness and No lumbar spinal tenderness Extrem General: Yes normal to inspection, No edema and No calf tenderness Skin General: warm and dry. Normal skin color. Normal skin turgor Neuro General: patient oriented x3, gait normal and no focal neuro deficit Cranial nerves: Yes Equal, round and reactive pupils present Cognition (Neuro): normal cognition Gait exam (Neuro): Normal gait present Sensory Exam: No Sensory deficit (Neuro) Psych Appearance: grossly normal Affect: normal affect Attitude: cooperative Thought process: Normal thought process present Results AMB Hemoglobin A1c AMB Hemoglobin A1c 5.7 % Last Edit by Anamaria Peterson MA on 12/30/23 17:14 Assessment and Plan Assessment & Plan (1) Hypertension: Code(s): I10 - Essential (primary) hypertension Qualifiers: Hypertension type: primary hypertension Qualified Code(s): I10 - Essential (primary) hypertension Plan: Lipid blood pressure is 138/90, above goal of less than 140/90 Will increase amlodipine to 10 mg daily. Take as prescribed Low-sodium diet and routine exercise encouraged Continue to monitor BP daily and report readings persistently above 140/90 or below 100/60 Follow-up in 1 months or return sooner with symptoms or concerns Verbalized understanding and agreed with treatment plan (2) Iron deficiency anemia: Code(s): D50.9 - Iron deficiency anemia, unspecified Qualifiers: Iron deficiency anemia type: other iron deficiency Qualified Code(s): D50.8 - Other iron deficiency anemias Plan: Recent H&H levels have improved, 12.2 and 39.5 respectively. MCV is low, 70.4 Continue to take ferrous sulfate as prescribed Will recheck CBC and iron studies 1 month Verbalized understanding and agreed with the plan (3) Prediabetes: Code(s): R73.03 - Prediabetes Plan: Recent fasting glucose is elevated, 118, previous fasting glucose was elevated, 108 A1c today is 5.7%, ADA diet and routine exercise encouraged Will monitor A1c annually Follow-up with symptoms or concerns Verbalized understanding and agreed with treatment plan Orders: Orders IRON PROFILE 1 Month D50.9 - Iron deficiency anemia, unspecified Complete Blood Count no Diff 1 Month D50.9 - Iron deficiency anemia, unspecified Ferritin 1 Month D50.9 - Iron deficiency anemia, unspecified Medications: New amlodipine 10 mg PO DAILY 30 tabs 3RF 30 days Discontinued amlodipine Discontinued Reason: Doctor's Order 5 mg PO DAILY 30 days 30 tabs 3RF Coding Level of Care Code Est Pt Level 4 (31434) Diagnoses Primary hypertension I10 Hypertension type: primary hypertension Other iron deficiency anemia D50.8 Iron deficiency anemia type: other iron deficiency Prediabetes R73.03
[2023-12-30 16:07] VITALS: BP 140/76; PULSE 78; RESP 13; TEMP 36.6; O2SAT 99; BMI 36.4
[2023-12-30 16:45] VITALS: BP 138/90
== END 2023-12-30 17:19 | disposition home or self-care (01) ==
PROVIDERS: PCP Nurse Practitioner Family; Visit Provider Nurse Practitioner Family
DX: I10 Essential (primary) hypertension (principal); D50.8 Other iron deficiency anemias; R73.03 Prediabetes; R73.01 Impaired fasting glucose
CPT/HCPCS: 83036; 99214

== ENCOUNTER 2024-01-27 08:51 | Outpatient (AMB) | payer BC, SELFPAY ==
--- NOTE | 2024-01-27 08:52 | MHC.PC.OV ---
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 Accompanied by: Self / Same As Patient Allergies No Known Allergies Allergy (Verified 01/27/24 09:10) Medication List - Last Reconciled 01/27/24 by Bunny Lamas CNP amlodipine 10 mg PO DAILY 30 days buspirone 20 mg (2 x 10 mg) PO TID 30 days duloxetine 60 mg PO DAILY 90 days ferrous sulfate 325 mg PO DAILY 30 days lamotrigine (Lamictal) 25 mg PO DAILY melatonin 3 mg PO BEDTIME PRN Tobacco use date assessed: 01/27/24 Dental Screening Dental Screen Date: 01/27/24 Did you have a dental visit in the last 12 months?: No Did you have a dental problem in the last 6 months where you did not have access to dental care?: No Was dental information given to patient?: Patient has dentist HPI HPI Comments History of Present Illness Details 48-year-old female presents for hypertension and anemia follow-up She admits to taking her medications as prescribed without adverse reactions She notes that she checks her BP daily. Her BP averages between 110/70 She states that she has been eating healthy and walking daily She established with a therapist and a professor of psychology; the currently plan is monthly follow up. She was diagnosed with Bipolar 2 disorder and was started on Lamictal with plan to d/c duloxetine in a month. She is also on buspirone She notes constipation on ferrous sulfate She did not get CBC and iron studies blood work done [facility] Medical History Bipolar 2 disorder, major depressive episode Hepatitis C Surgical History No pertinent past surgical history Family History Other Mental health disorder Substance abuse Social History Housing: House Patient Tobacco Use Status: Former Tobacco user Tobacco use type: Cigarette Cigarettes Per Day: 10 Years Smoked: 13 e-Cigarette/Vaping Use: Currently Using Second Hand Smoke Exposure: No service: No Current occupational status: employed Current occupation: [employer] Current occupational exposures/hazards: No Cognitive needs: No Hearing needs: No Vision needs: No Questionnaire Thrive Questionnaire Date Thrive assessed: 12/02/23 JUAN-7 AMB Questionnaire JUAN-7 Date JUAN - 7 assessed: 12/02/23 Source: Developed by Drs. Humberto Gutiérrez, Gail Jauregui, Don Madsen and colleagues, with an educational jessika from [employer]. Review of Systems Const Details: Const Denies chills, Denies fatigue, Denies fever(s), Denies headache(s) and Denies weakness ENT Denies dizziness and Denies headache(s) Card Denies chest pain, Denies lightheadedness, Denies dyspnea and Denies other (Palpitations) Resp Denies cough, Denies dyspnea, Denies wheezing and Denies other ( shortness of breath) GI Denies abdominal pain, Denies melena, Denies hematochezia, Denies change in bowel habits, Denies dyspepsia and Denies nausea Denies hematuria and Denies dysuria Musc Denies abnormal gait, Denies myalgias, Denies arthralgias, Denies numbness and Denies tingling Skin/Breast Denies rash, Denies unusual bruising and Denies wounds Neuro Denies abnormal gait, Denies dizziness, Denies headache(s), Denies memory loss, Denies numbness, Denies Sensory deficit (Neuro), Denies tingling and Denies weakness Psych Denies anxiety, Denies depression, Denies memory loss Endo Denies cold intolerance, Denies fatigue, Denies heat intolerance, Denies polydipsia and Denies polyuria Aller/Immun Denies wheezing Physical exam (Primary Care) Vital Signs: Last Vital Signs Temp 97.6 F 01/27/24 08:53 Pulse 79 01/27/24 08:53 Resp 13 01/27/24 08:53 BP 118/74 01/27/24 08:53 Pulse Ox 99 01/27/24 08:53 Oxygen Delivery Method Room Air 01/27/24 08:53 BMI result Body Mass Index 36.1 Tobacco/Smoking Status: Tobacco use Status Tobacco use date assessed 01/27/24 01/27/24 09:01 Patient Tobacco Use Status Former Tobacco user 01/27/24 09:01 Tobacco use type Cigarette 01/27/24 09:01 e-Cigarette/Vaping Use Currently Using 01/27/24 09:01 Thrive Assessment: Date of Thrive Assessment Date Thrive assessed 12/02/23 01/27/24 09:01 Const Other: General: no acute distress and well developed Nutritional Appearance: well nourished Orientation/consciousness: patient oriented x3 HENMT Head: Yes normocephalic and Yes atraumatic Eyes General: appearance normal, both eyes and all related structures Pupils: Equal, round and reactive pupils present EOM: EOMs intact bilaterally Resp Effort & Inspection: normal respiratory effort Auscultation: clear to auscultation bilaterally Cardio Rate: regular rate Rhythm: regular rhythm Heart sounds: S1 normal heart sound present, S2 normal heart sound present, no gallops, no murmurs and no rubs GI Palpation (GI): No Abdominal aortic bruit present, Soft to palpation, nontender, No hepatosplenomegaly present and No Rebound tenderness present Auscultation: normal bowel sounds General: Yes no CVA tenderness Back/Spine/Pelvis Back: no CVA tenderness Cervical Spine: cervical ROM normal and No Cervical spine tenderness Thoracic/Lumbar Spine: thoraco-lumbar ROM normal, No pain with thoraco-lumbar ROM, No thoracic spinal tenderness and No lumbar spinal tenderness Extrem General: Yes normal to inspection, No edema and No calf tenderness Skin General: warm and dry. Normal skin color. Normal skin turgor Neuro General: patient oriented x3, gait normal and no focal neuro deficit Cranial nerves: Yes Equal, round and reactive pupils present Cognition (Neuro): normal cognition Gait exam (Neuro): Normal gait present Sensory Exam: No Sensory deficit (Neuro) Psych Appearance: grossly normal Affect: normal affect Attitude: cooperative Thought process: Normal thought process present Assessment and Plan Assessment & Plan (1) Hypertension: Code(s): I10 - Essential (primary) hypertension Qualifiers: Hypertension type: primary hypertension Qualified Code(s): I10 - Essential (primary) hypertension Plan: Blood pressure is 118/74, within goal of less than 140/80 Continue current treatment regimen Low-sodium diet encouraged Follow-up in 1 month for hypertension, anemia, and anxiety/depression follow-up Return sooner with symptoms or concerns Verbalized understanding and agreed with treatment plan (2) Iron deficiency anemia: Code(s): D50.9 - Iron deficiency anemia, unspecified Qualifiers: Iron deficiency anemia type: other iron deficiency Qualified Code(s): D50.8 - Other iron deficiency anemias Plan: She will get blood work done today Will review results and make changes as needed Continue to take ferrous sulfate as prescribed Magnesium oxide 400 mg daily 4 constipation. Advised to take as prescribed Adequate hydration and Healthy diet including fruits and vegetables encouraged Verbalized understanding and agreed with the plan Medications: New magnesium oxide 400 mg PO DAILY 30 days 30 tabs 3RF Coding Level of Care Code Est Pt Level 4 (52103) Diagnoses Primary hypertension I10 Hypertension type: primary hypertension Other iron deficiency anemia D50.8 Iron deficiency anemia type: other iron deficiency
[2024-01-27 08:53] VITALS: BP 118/74; PULSE 79; RESP 13; TEMP 36.4; O2SAT 99; BMI 36.1
== END 2024-01-27 09:21 | disposition home or self-care (01) ==
PROVIDERS: PCP Nurse Practitioner Family; Visit Provider Nurse Practitioner Family
DX: I10 Essential (primary) hypertension (principal); D50.8 Other iron deficiency anemias
CPT/HCPCS: 99214

== ENCOUNTER 2024-01-27 09:23 | Outpatient (REF) | payer BC, SELFPAY ==
[2024-01-27 11:15] LABS: Hematocrit 36.9 % (37.0-47.0); Hemoglobin 11.6 g/dl (12.0-16.0); Mean Corpuscular HGB Conc 31.4 g/dl (31.0-35.0); Mean Corpuscular Hemoglobin 24.5 pg (27.0-33.0); Mean Platelet Volume 9.6 fL (9.4-12.3); Platelet Count 415 X10*3/uL (160-400); Red Blood Count 4.73 X10*6/uL (4.20-5.50); Red Cell Distribution Width 26.3 % (11.0-16.0); White Blood Count 6.3 X10*3/uL (4.8-10.8)
[2024-01-27 11:42] LABS: Iron 330 mcg/dL (30-160); Percent Iron Saturation 86 % (15-50); Total Iron Binding Capacity 385 mcg/dL (228-428); Unsaturated Iron Binding 55 ug/dL
[2024-01-27 11:56] LABS: Ferritin 7 ng/mL (10-250)
== END 2024-01-27 09:24 | disposition home or self-care (01) ==
LOC: HO.WFDLDS 09:23
PROVIDERS: Visit Provider Nurse Practitioner Family
DX: D50.9 Iron deficiency anemia, unspecified (principal)
CPT/HCPCS: 36415; 82728; 83540; 85027

== ENCOUNTER 2024-03-17 11:03 | Outpatient (AMB) | payer BC, SELFPAY ==
[2024-03-17 11:13] VITALS: BP 116/66; PULSE 82; RESP 14; TEMP 36.6; O2SAT 99; BMI 36.6
--- NOTE | 2024-03-17 11:13 | A.OFFPC_ITS ---
Vital Signs 03/17/24 11:13 Height 5 ft 2 in Weight 200 lb BMI 36.6 BP 116/66 Blood Pressure Location Rt brachial Position Sitting Respiration 14 Pulse 82 Pulse Source Pulse Oximeter Temp 97.9 F Temp Source Temporal Artery Scan Pulse Oximetry (%) 99 Oxygen Delivery Method Room Air Intake Visit Reasons: HTN, [address] [employer] Required: No Accompanied by: self Allergies No Known Allergies Allergy (Verified 03/17/24 11:24) Medication List - Last Reviewed 03/17/24 by HERMELINDO Up amlodipine 10 mg PO DAILY 30 days buspirone 20 mg (2 x 10 mg) PO TID 30 days duloxetine 20 mg PO DAILY ferrous sulfate 325 mg PO DAILY 30 days lamotrigine (Lamictal) 100 mg PO DAILY magnesium oxide 400 mg PO DAILY 30 days melatonin 3 mg PO BEDTIME PRN Tobacco use date assessed: 01/27/24 Dental Screening Dental Screen Date: 01/27/24 HPI HPI Comments History of Present Illness Details 48-year-old female presents for hyperten jonathan follow-up She admits to taking her medications as prescribed without adverse reactions. She has been taking ferrous sulfate every other day as instructed by her PCP She reports controlled anxiety and depression symptoms with current treatment regimen and break from work for the past 3 months. She sees a therapist and psychiatrist every 3-4 weeks She offers no complaints and denies acute symptoms at this time She did not get required blood work done for anemia but plans to do so today [facility] Medical History Bipolar 2 disorder, major depressive episode Hepatitis C Surgical History No pertinent past surgical history Family History Other Mental health disorder Substance abuse Social History Housing: House Patient Tobacco Use Status: Former Tobacco user Tobacco use type: Cigarette Cigarettes Per Day: 10 Years Smoked: 13 e-Cigarette/Vaping Use: Currently Using Second Hand Smoke Exposure: No service: No Current occupational status: employed Current occupation: [employer] Current occupational exposures/hazards: No Cognitive needs: No Hearing needs: No Vision needs: No Questionnaire Thrive Questionnaire Date Thrive assessed: 12/02/23 JUAN-7 AMB Questionnaire JUAN-7 Date JUAN - 7 assessed: 12/02/23 Source: Developed by Drs. Humberto Gutiérrez, Gail Jauregui, Don Madsen and colleagues, with an educational jessika from [employer]. Review of Systems Const Details: Const Denies chills, Denies fatigue, Denies fever(s), Denies headache(s) and Denies weakness ENT Denies dizziness and Denies headache(s) Card Denies chest pain, Denies lightheadedness, Denies dyspnea and Denies other (Palpitations) Resp Denies cough, Denies dyspnea, Denies wheezing and Denies other ( shortness of breath) GI Denies abdominal pain, Denies melena, Denies hematochezia, Denies change in bowel habits, Denies dyspepsia and Denies nausea Denies hematuria and Denies dysuria Musc Denies abnormal gait, Denies myalgias, Denies arthralgias, Denies numbness and Denies tingling Skin/Breast Denies rash, Denies unusual bruising and Denies wounds Neuro Denies abnormal gait, Denies dizziness, Denies headache(s), Denies memory loss, Denies numbness, Denies Sensory deficit (Neuro), Denies tingling and Denies weakness Psych Denies anxiety, Denies depression, Denies memory loss Endo Denies cold intolerance, Denies fatigue, Denies heat intolerance, Denies polydipsia and Denies polyuria Aller/Immun Denies wheezing Physical exam (Primary Care) Vital Signs: Last Vital Signs Temp 97.9 F 03/17/24 11:13 Pulse 82 03/17/24 11:13 Resp 14 03/17/24 11:13 BP 116/66 03/17/24 11:13 Pulse Ox 99 03/17/24 11:13 Oxygen Delivery Method Room Air 03/17/24 11:13 BMI result Body Mass Index 36.6 Tobacco/Smoking Status: Tobacco use Status Tobacco use date assessed 01/27/24 03/17/24 11:22 Patient Tobacco Use Status Former Tobacco user 03/17/24 11:22 Tobacco use type Cigarette 03/17/24 11:22 e-Cigarette/Vaping Use Currently Using 03/17/24 11:22 Thrive Assessment: Date of Thrive Assessment Date Thrive assessed 12/02/23 03/17/24 11:22 Const Other: General: no acute distress and well developed Nutritional Appearance: well nourished Orientation/consciousness: patient oriented x3 HENMT Head: Yes normocephalic and Yes atraumatic Eyes General: appearance normal, both eyes and all related structures Pupils: Equal, round and reactive pupils present EOM: EOMs intact bilaterally Resp Effort & Inspection: normal respiratory effort Auscultation: clear to auscultation bilaterally Cardio Rate: regular rate Rhythm: regular rhythm Heart sounds: S1 normal heart sound present, S2 normal heart sound present, no gallops, no murmurs and no rubs GI Palpation (GI): No Abdominal aortic bruit present, Soft to palpation, nontender, No hepatosplenomegaly present and No Rebound tenderness present Auscultation: normal bowel sounds General: Yes no CVA tenderness Back/Spine/Pelvis Back: no CVA tenderness Cervical Spine: cervical ROM normal and No Cervical spine tenderness Thoracic/Lumbar Spine: thoraco-lumbar ROM normal, No pain with thoraco-lumbar ROM, No thoracic spinal tenderness and No lumbar spinal tenderness Extrem General: Yes normal to inspection, No edema and No calf tenderness Skin General: warm and dry. Normal skin color. Normal skin turgor Neuro General: patient oriented x3, gait normal and no focal neuro deficit Cranial nerves: Yes Equal, round and reactive pupils present Cognition (Neuro): normal cognition Gait exam (Neuro): Normal gait present Sensory Exam: No Sensory deficit (Neuro) Psych Appearance: grossly normal Affect: normal affect Attitude: cooperative Thought process: Normal thought process present Assessment and Plan Assessment & Plan (1) Hypertension: Code(s): I10 - Essential (primary) hypertension Qualifiers: Hypertension type: primary hypertension Qualified Code(s): I10 - Essential (primary) hypertension Plan: Blood pressure is 160/66, within goal of less than 140/90 Continue to take amlodipine as prescribed Low-sodium diet encouraged Follow-up in 1 month for an extended physical exam or return sooner with symptoms or concerns Verbalized understanding and agreed with treatment plan (2) Iron deficiency anemia: Code(s): D50.9 - Iron deficiency anemia, unspecified Qualifiers: Iron deficiency anemia type: other iron deficiency Qualified Code(s): D50.8 - Other iron deficiency anemias Plan: H&H on 01/27/2024 was 11.6/36.9, MCV was 78 She has been taking ferrous sulfate 325 mg every other day She will do blood work today. Will review results and make changes as needed Continue to take ferrous sulfate as prescribed Verbalized understanding and agreed with the plan Orders: Orders Reticulocyte Count Today D50.8 - Other iron deficiency anemias Coding Level of Care Code Est Pt Level 4 (67124) Complex EM visit Add On G2211 Diagnoses Primary hypertension I10 Hypertension type: primary hypertension Other iron deficiency anemia D50.8 Iron deficiency anemia type: other iron deficiency
== END 2024-03-17 11:43 | disposition home or self-care (01) ==
PROVIDERS: PCP Nurse Practitioner Family; Visit Provider Nurse Practitioner Family
DX: I10 Essential (primary) hypertension (principal); D50.8 Other iron deficiency anemias
CPT/HCPCS: 99214; G2211

== ENCOUNTER 2024-06-01 10:54 | Outpatient (REF) | payer BC, SELFPAY ==
[2024-06-01 14:15] LABS: Hemoglobin 13.5 g/dl (12.0-16.0); Immature Retic Fraction 9.4 % (3.0-15.9); Mean Corpuscular HGB Conc 33.8 g/dl (31.0-35.0); Mean Corpuscular Hemoglobin 29.9 pg (27.0-33.0); Mean Corpuscular Volume 88.7 fL (80.0-98.0); Platelet Count 309 X10*3/uL (160-400); Red Blood Count 4.51 X10*6/uL (4.20-5.50); Red Cell Distribution Width 14.9 % (11.0-16.0); Retic HGB Equivalent 34.8 pg (30.0-35.0); Reticulocyte Percent 2.1 % (0.5-1.8); Reticulocytes Absolute 0.095 X10*6/uL (0.026-0.095); White Blood Count 6.8 X10*3/uL (4.8-10.8)
[2024-06-01 14:44] LABS: Iron 133 mcg/dL (30-160); Percent Iron Saturation 41 % (15-50); Total Iron Binding Capacity 324 mcg/dL (228-428); Unsaturated Iron Binding 191 ug/dL
[2024-06-01 14:48] LABS: Ferritin 24 ng/mL (10-250)
== END 2024-06-01 10:55 | disposition home or self-care (01) ==
LOC: HO.WFDLDS 10:54
PROVIDERS: Visit Provider Nurse Practitioner Family
DX: D50.8 Other iron deficiency anemias (principal)
CPT/HCPCS: 36415; 82728; 83540; 85027; 85045

== ENCOUNTER 2024-06-02 10:46 | Outpatient (AMB) | payer BC, SELFPAY ==
--- NOTE | 2024-06-02 10:48 | MHC.PC.OV ---
Vital Signs 06/02/24 10:49 Height 5 ft 2 in Weight 203 lb 4 oz BMI 37.2 BP 120/78 Blood Pressure Location Rt brachial Position Sitting Respiration 16 Pulse 70 Pulse Source Pulse Oximeter Temp 97.7 F Temp Source Oral Pulse Oximetry (%) 99 Oxygen Delivery Method Room Air Intake Visit Reasons: PE Intake Note: patient here for CPE. Delivery Lead Required: No Is last menstrual period known: Yes Last menstrual period: 05/20/24 Post menopausal: No Patient : No Allergies No Known Allergies Allergy (Verified 06/02/24 11:13) Medication List - Last Reconciled 06/02/24 by Bunny Lamas CNP amlodipine 10 mg PO DAILY 30 days buspirone 20 mg (2 x 10 mg) PO TID 30 days ferrous sulfate 325 mg PO DAILY 30 days hydroxyzine HCl 10 mg PO TID PRN lamotrigine (Lamictal) 100 mg PO DAILY magnesium oxide 400 mg PO DAILY 30 days multivitamin 1 tab PO DAILY Tobacco use date assessed: 01/27/24 Dental Screening Dental Screen Date: 06/02/24 Did you have a dental visit in the last 12 months?: No Did you have a dental problem in the last 6 months where you did not have access to dental care?: No Was dental information given to patient?: Patient has dentist HPI HPI Comments History of Present Illness Details 48-year-old female presents for an extended physical exam She has past medical history significant for hypertension, iron-deficiency anemia, prediabetes, hypercholesterolemia, obesity, anxiety, and depression She admits to taking her medications as prescribed. She developed bilat lower legs and feet swelling from lamotrigine. She stopped taking the medication and contacted her psychiatrist. Her swelling completely resolved. She has an appointment with her psychiatrist later this week She notes that she has been making healthy dietary changes, sleeping welling, and exercising routinely She reports controlled anxiety and depressive symptoms She offers no complaints and denies acute symptoms at this time She is followed by a psychiatrist and a therapist monthly via telehealth at [facility] She notes that has never had a mammogram. 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 She has not had a colonoscopy done [facility] Medical History (Updated 06/02/24 @ 11:25 by Bunny Lamas CNP) Bipolar 2 disorder, major depressive episode Hepatitis C Surgical History No pertinent past surgical history Family History Other Mental health disorder Substance abuse Social History Housing: House Patient Tobacco Use Status: Former Tobacco user Tobacco use type: Cigarette Cigarettes Per Day: 10 Years Smoked: 13 e-Cigarette/Vaping Use: Currently Using Second Hand Smoke Exposure: No service: No Current occupational status: employed Current occupation: [employer] Current occupational exposures/hazards: No Cognitive needs: No Hearing needs: No Vision needs: No Female Reproductive History Menstrual Date of last menstrual period: 05/20/24 Questionnaire PHQ-9 Over the last 2 weeks, how often have you been bothered by any of the following problems? 1. Little interest or pleasure in doing things: not at all 2. Feeling down, depressed, or hopeless: several days 3. Trouble falling or staying asleep, or sleeping too much: several days 4. Feeling tired or having little energy: not at all 5. Poor appetite or overeating: more than half the days 6. Feeling bad about yourself - or that you are a failure or have let yourself or your family down: several days 7. Trouble concentrating on things, such as reading the newspaper or watching television: several days 8. Moving or speaking so slowly that other people could have noticed. Or the opposite - being so fidgety or restless that you have been moving around a lot more than usual: not at all 9. Thoughts that you would be better off or of hurting yourself in some way: not at all Total score: 6 Depression Screening Interpretation: Positive Depression Screening Follow-up: Existing condition and In treatment Depression Screening Done: Yes 44637 - PHQ-9 Billing: Yes Source: Developed by Drs. Humberto Gutiérrez, Gail Jauregui, Don Madsen and colleagues, with an educational jessika from [employer]. Thrive Questionnaire Date Thrive assessed: 12/02/23 AUDIT C Alcohol Use Questionnaire (AUDIT-C) 1. How often do you have a drink containing alcohol?: Never Total Score: 0 Score Reviewed/Action Taken: Yes JUAN-7 AMB Questionnaire JUAN-7 Date JUAN - 7 assessed: 06/02/24 Feeling nervous, anxious, or on edge: 1 = Several days Not being able to stop or control worryin = Not at all Worrying too much about different things: 0 = Not at all Trouble relaxin = Not at all Being so restless that it is hard to sit still: 0 = Not at all Becoming easily annoyed or irritable: 1 = Several days Feeling afraid as if something awful might happen: 0 = Not at all Total JUAN-7 score (0-4 normal; 5-9 mild; 10-14 moderate; 15-21 severe): 2 Source: Developed by Drs. Humberto Gutiérrez, Gail Jauregui, Don Madsen and colleagues, with an educational ejssika from [employer]. JUAN-7 Assessment Billing JUAN-7 Assessment Tool: JUAN-7 Assessment [id number] Review of Systems Const Details: Denies chills, Denies fatigue, Denies fever(s), Denies headache(s) and Denies weakness HEENT Denies change in vision, Denies dizziness, Denies headache(s), Denies hearing loss, Denies nasal congestion, Denies sinus pain, Denies sinus pressure and Denies sore throat Card Denies chest pain, Denies lightheadedness, Denies dyspnea and Denies other (palpitations) Resp Denies cough, Denies dyspnea and Denies wheezing GI Denies abdominal pain, Denies melena, Denies hematochezia, Denies change in bowel habits, Denies dyspepsia and Denies nausea Denies hematuria and Denies dysuria Musc Denies abnormal gait, Denies myalgias, Denies arthralgias, Denies numbness and Denies tingling Skin/Breast Denies rash, Denies unusual bruising and Denies wounds Neuro Denies abnormal gait, Denies dizziness, Denies headache(s), Denies memory loss, Denies numbness, Denies Sensory deficit (Neuro), Denies tingling and Denies weakness Psych Denies anxiety, Denies depression and Denies memory loss Endo Denies cold intolerance, Denies fatigue, Denies heat intolerance, Denies polydipsia and Denies polyuria Fox/Lymph Denies easy bleeding and Denies easy bruising Aller/Immun Denies wheezing Physical exam (Primary Care) Vital Signs: Last Vital Signs Temp 97.7 F 06/02/24 10:49 Pulse 70 06/02/24 10:49 Resp 16 06/02/24 10:49 BP 120/78 06/02/24 10:49 Pulse Ox 99 06/02/24 10:49 Oxygen Delivery Method Room Air 06/02/24 10:49 BMI result Body Mass Index 37.2 Tobacco/Smoking Status: Tobacco use Status Tobacco use date assessed 01/27/24 06/02/24 11:02 Patient Tobacco Use Status Former Tobacco user 06/02/24 11:02 Tobacco use type Cigarette 06/02/24 11:02 e-Cigarette/Vaping Use Currently Using 06/02/24 11:02 PHQ-9: PHQ-9 Score PHQ-9: Total score 6 06/02/24 11:17 Depression Screening Interpretation: Positive Depression Screening Follow-up: Existing condition and In treatment Thrive Assessment: Date of Thrive Assessment Date Thrive assessed 12/02/23 06/02/24 11:02 Const Other: General: no acute distress, well developed, alert and awake Nutritional Appearance: well nourished Orientation/consciousness: patient oriented x3 HENMT Head: Yes normocephalic and Yes atraumatic Ears: hearing grossly normal bilaterally and TM's normal bilaterally General nose exam: Normal external nose present and Normal nares present Mouth: Normal oral and palatal mucosa present and moist mucous membranes Teeth and gingiva: dentition normal Throat: Yes oropharynx normal Eyes Pupils: Equal, round and reactive pupils present and Pupil accommodation reflex normal EOM: EOMs intact bilaterally Neck Neck: Yes normal visual inspection, Yes no lymphadenopathy and Yes trachea midline Thyroid: Thyroid normal Carotids: no bruits Lymphatic: no lymphadenopathy noted Chest Chest palpation & inspection: normal inspection of the chest Resp Effort & Inspection: normal respiratory effort Auscultation: clear to auscultation bilaterally Cardio Rate: regular rate Rhythm: regular rhythm Heart sounds: S1 normal heart sound present, S2 normal heart sound present, no gallops, no murmurs and no rubs Bruits: no abdominal aortic bruits and no carotid bruits GI Palpation (GI): No Abdominal aortic bruit present, Soft to palpation, nontender, No hepatosplenomegaly present and No Rebound tenderness present Auscultation: normal bowel sounds General: Yes no CVA tenderness Back/Spine/Pelvis Back: no CVA tenderness Cervical Spine: cervical ROM normal and No Cervical spine tenderness Thoracic/Lumbar Spine: thoraco-lumbar ROM normal, No pain with thoraco-lumbar ROM, No thoracic spinal tenderness and No lumbar spinal tenderness Skin General: warm and dry. Normal skin color. Normal skin turgor Lesions: no lesions Rashes: no rashes Trauma: no lacerations or abrasions Wounds: no wounds Nails: normal Neuro General: patient oriented x3, gait normal and CN's II-XI intact bilaterally Cranial nerves: Yes Equal, round and reactive pupils present Cognition (Neuro): normal cognition Gait exam (Neuro): Normal gait present Motor exam (neuro): 5/5 motor strength present throughout Sensory Exam: No Sensory deficit (Neuro) Deep tendon reflexes (DTR's): Right patellar reflex intensity grade: 2+ and Left patellar reflex intensity grade: 2+ Extrem General: Yes normal to inspection, No edema and No calf tenderness Psych Appearance: grossly normal Affect: normal affect Attitude: cooperative Thought process: Normal thought process present Assessment and Plan Assessment & Plan (1) Normal physical exam: Code(s): Z00.00 - Encounter for general adult medical examination without abnormal findings Plan: No significant physical restrictions or limitations noted Continue current treatment regimen Healthy diet and routine exercise encouraged Advised to get blood work done before her next visit Encouraged to get fasting lab work done before her next visit Follow-up in 3 months for hypertension, iron-deficiency anemia, hypercholesterolemia, and prediabetes Return sooner with symptoms or concerns Verbalized understanding and agreed with the treatment plan (2) Hypertension: Code(s): I10 - Essential (primary) hypertension Qualifiers: Hypertension type: primary hypertension Qualified Code(s): I10 - Essential (primary) hypertension Plan: Blood pressure is 120/78, within goal of less than 140/90 Continue current treatment regimen Low-sodium diet encouraged Follow-up in 3 months Verbalized understanding and agreed with the treatment plan (3) Iron deficiency anemia: Code(s): D50.9 - Iron deficiency anemia, unspecified Qualifiers: Iron deficiency anemia type: other iron deficiency Qualified Code(s): D50.8 - Other iron deficiency anemias Plan: Recent labs reviewed with the patient; normal CBC and iron studies Continue current treatment regimen Advised to get blood work done before her next visit Follow-up in 3 months Verbalized understanding and agreed with the treatment plan (4) Obesity (BMI 30.0-34.9): Code(s): E66.9 - Obesity, unspecified Plan: She currently weighs 203 lb, BMI is 37.2 She has been making healthy dietary changes and exercising routinely Healthy diet and routine exercise encouraged Follow-up with symptoms or concerns Verbalized understanding and agreed with the plan (5) Bipolar 2 disorder, major depressive episode: Code(s): F31.81 - Bipolar II disorder Plan: She reports controlled anxiety and depressive symptoms PHQ-9 score revealed mild depression. JUAN-7 score is normal Continue current treatment regimen Continue follow-up with therapist and psychiatrist as planned Routine exercise encouraged Verbalized understanding and agreed with the plan (6) Colon cancer screening: Code(s): Z12.11 - Encounter for screening for malignant neoplasm of colon Plan: She has never had a colonoscopy Referred [place] [facility] [place] for a colonoscopy Orders: Orders Complete Blood Count no Diff 3 Months D50.8 - Other iron deficiency anemias Lipid Panel 3 Months E78.00 - Pure hypercholesterolemia, unspecified Hemoglobin A1c 3 Months R73.03 - Prediabetes Referrals Gastroenterology Referral Z12.11 - Encounter for screening for malignant neoplasm of colon Coding Level of Care Code Est Pt Prev Care 40-64y(33164) Diagnoses Normal physical exam Z00.00 Primary hypertension I10 Hypertension type: primary hypertension Other iron deficiency anemia D50.8 Iron deficiency anemia type: other iron deficiency Obesity (BMI 30.0-34.9) E66.9 Bipolar 2 disorder, major depressive episode F31.81 Colon cancer screening Z12.11 Additional Codes JUAN-7 Assessment Billing - JUAN-7 Assessment Tool: JUAN-7 Assessment [id number] ([id number])
[2024-06-02 10:49] VITALS: BP 120/78; PULSE 70; RESP 16; TEMP 36.5; O2SAT 99; BMI 37.2
== END 2024-06-02 11:36 | disposition home or self-care (01) ==
PROVIDERS: PCP Nurse Practitioner Family; Visit Provider Nurse Practitioner Family
DX: Z00.00 Encounter for general adult medical examination without abnormal findings (principal); Z12.11 Encounter for screening for malignant neoplasm of colon; F31.81 Bipolar II disorder; Z68.37 Body mass index [BMI] 37.0-37.9, adult; I10 Essential (primary) hypertension; D50.8 Other iron deficiency anemias; E66.9 Obesity, unspecified
CPT/HCPCS: 99396

== ENCOUNTER 2024-06-11 07:32 | Outpatient (REF) | payer BC, SELFPAY ==
[2024-06-11 12:04] LABS: Cholesterol 225 mg/dL (<200); HDL Cholesterol 40 mg/dL (>40); LDL Cholesterol Calculated 155 mg/dL (<100); Triglycerides 152 mg/dL (<150)
[2024-06-11 12:07] LABS: Free T4 (Free Thyroxine) 0.77 ng/dL (0.71-1.85); Thyroid Stimulating Hormone 1.11 uIU/mL (0.32-4.0); Vitamin D 25-OH Total 57.1 ng/mL (>30)
[2024-06-12 06:44] LABS: Triiodothyronine T3 Free 2.9 pg/mL (2.3-4.2)
== END 2024-06-11 07:33 | disposition home or self-care (01) ==
LOC: HO.WFDLDS 07:32
PROVIDERS: Visit Provider Registered Nurse
DX: F31.9 Bipolar disorder, unspecified (principal)
CPT/HCPCS: 36415; 80061; 82306; 84439; 84443; 84481

== ENCOUNTER 2024-09-07 08:55 | Outpatient (AMB) | payer BC, SELFPAY ==
--- NOTE | 2024-09-07 09:00 | A.OFFPC_ITS ---
Vital Signs 09/07/24 09:06 Height 5 ft 2 in Weight 209 lb 2 oz BMI 38.2 BP 134/98 H Blood Pressure Location Rt brachial Position Sitting Respiration 16 Pulse 78 Pulse Source Pulse Oximeter Temp 98.0 F Temp Source Oral Pulse Oximetry (%) 98 Oxygen Delivery Method Room Air Intake Visit Reasons: 3 mos HTN, [place], high chol, Intake Note: patient here for follow up on HTN, [place], High cholesterol [employer] Consultant Required: No Is last menstrual period known: Yes Last menstrual period: 08/25/24 Post menopausal: No Patient : No Allergies No Known Allergies Allergy (Verified 09/07/24 09:11) Medication List - Last Reconciled 09/07/24 by Bunny Lamas CNP amlodipine 10 mg PO DAILY 30 days buspirone 20 mg (2 x 10 mg) PO TID 30 days ferrous sulfate 325 mg PO DAILY 30 days lurasidone (Latuda) 60 mg PO DAILY multivitamin 1 tab PO DAILY Tobacco use date assessed: 09/07/24 Dental Screening Dental Screen Date: 09/07/24 Did you have a dental visit in the last 12 months?: No Did you have a dental problem in the last 6 months where you did not have access to dental care?: No Was dental information given to patient?: Patient has dentist HPI HPI Comments History of Present Illness Details 48-year-old female presents for hyperten jonathan, iron-deficiency anemia, and hypercholesterolemia follow-up She admits to taking her medications as prescribed without adverse reactions He notes that she has not been able to lose weight for the past 5 months despite making healthy dietary choices and exercising routinely. She admits to maintaining a low-sodium diet. She is willing to be referred to a property utilization officer/dietitian She forgot to get blood work done for this visit as planned [facility] Medical History (Updated 09/07/24 @ 09:33 by Bunny Lamas CNP) Bipolar 2 disorder, major depressive episode Hepatitis C Surgical History No pertinent past surgical history Family History Other Mental health disorder Substance abuse Social History Housing: House Patient Tobacco Use Status: Former Tobacco user Tobacco use type: Cigarette Cigarettes Per Day: 10 Years Smoked: 13 e-Cigarette/Vaping Use: Currently Using Second Hand Smoke Exposure: No service: No Current occupational status: employed Current occupation: [employer] Current occupational exposures/hazards: No Cognitive needs: No Hearing needs: No Vision needs: No Female Reproductive History Menstrual Date of last menstrual period: 08/25/24 Questionnaire PHQ-9 Over the last 2 weeks, how often have you been bothered by any of the following problems? 1. Little interest or pleasure in doing things: nearly every day 2. Feeling down, depressed, or hopeless: nearly every day 3. Trouble falling or staying asleep, or sleeping too much: nearly every day 4. Feeling tired or having little energy: more than half the days 5. Poor appetite or overeating: not at all 6. Feeling bad about yourself - or that you are a failure or have let yourself or your family down: not at all 7. Trouble concentrating on things, such as reading the newspaper or watching television: several days 8. Moving or speaking so slowly that other people could have noticed. Or the opposite - being so fidgety or restless that you have been moving around a lot more than usual: several days 9. Thoughts that you would be better off or of hurting yourself in some way: not at all Total score: 13 Depression Screening Interpretation: Positive Depression Screening Follow-up: Existing condition and In treatment Depression Screening Done: Yes Source: Developed by Drs. Humberto Gutiérrez, Gail Jauregui, Don Madsen and colleagues, with an educational jessika from [employer]. Thrive Questionnaire Date Thrive assessed: 12/02/23 I am a: Patient What is your living situation today?: I have a steady place to live Within the past 12 months, did the food you bought not last and you didn't have the money to get more?: Never true Within the past 12 months, did you worry whether your food would run out before you got money to buy more?: Never true Do you have trouble paying for medicines?: No Do you have trouble getting transportation to medical appointments?: No Do you have trouble paying your heating and electricity bill?: No Do you have trouble taking care of your child, family member or friend?: No Do you have trouble with day-to-day activities such as bathing, preparing meals, shopping, managing finances, etc.?: No Are you currently unemployed and looking for a job?: No Are you interested in more education?: No Please select the resources that you would like help with: None Currently or been in a relationship where the following occur: No concerns reported THRIVE Score: 0 AUDIT C Alcohol Use Questionnaire (AUDIT-C) 1. How often do you have a drink containing alcohol?: Never Total Score: 0 JUAN-7 AMB Questionnaire JUAN-7 Date JUAN - 7 assessed: 06/02/24 Feeling nervous, anxious, or on edge: 1 = Several days Not being able to stop or control worryin = Several days Worrying too much about different things: 1 = Several days Trouble relaxin = Several days Being so restless that it is hard to sit still: 1 = Several days Becoming easily annoyed or irritable: 1 = Several days Feeling afraid as if something awful might happen: 0 = Not at all Total JUAN-7 score (0-4 normal; 5-9 mild; 10-14 moderate; 15-21 severe): 6 Source: Developed by Drs. Humberto Gutiérrez, Gail Jauregui, Don Madsen and colleagues, with an educational jessika from [employer]. Review of Systems Const Details: Const Denies chills, Denies fatigue, Denies fever(s), Denies headache(s) and Denies weakness ENT Denies dizziness and Denies headache(s) Card Denies chest pain, Denies lightheadedness, Denies dyspnea and Denies other (Palpitations) Resp Denies cough, Denies dyspnea, Denies wheezing and Denies other ( shortness of breath) GI Denies abdominal pain, Denies melena, Denies hematochezia, Denies change in bowel habits, Denies dyspepsia and Denies nausea Denies hematuria and Denies dysuria Musc Denies abnormal gait, Denies myalgias, Denies arthralgias, Denies numbness and Denies tingling Skin/Breast Denies rash, Denies unusual bruising and Denies wounds Neuro Denies abnormal gait, Denies dizziness, Denies headache(s), Denies memory loss, Denies numbness, Denies Sensory deficit (Neuro), Denies tingling and Denies weakness Psych Reports anxiety, Reports depression, Denies memory loss Endo Denies cold intolerance, Denies fatigue, Denies heat intolerance, Denies polydipsia and Denies polyuria Aller/Immun Denies wheezing Physical exam (Primary Care) Vital Signs: Last Vital Signs Temp 98.0 F 09/07/24 09:06 Pulse 78 09/07/24 09:06 Resp 16 09/07/24 09:06 BP 134/98 H 09/07/24 09:06 Pulse Ox 98 09/07/24 09:06 Oxygen Delivery Method Room Air 09/07/24 09:06 BMI result Body Mass Index 38.2 Tobacco/Smoking Status: Tobacco use Status Tobacco use date assessed 09/07/24 09/07/24 09:08 Patient Tobacco Use Status Former Tobacco user 09/07/24 09:03 Tobacco use type Cigarette 09/07/24 09:03 e-Cigarette/Vaping Use Currently Using 09/07/24 09:03 PHQ-9: PHQ-9 Score PHQ-9: Total score 13 09/07/24 09:03 Depression Screening Interpretation: Positive Depression Screening Follow-up: Existing condition and In treatment Thrive Assessment: Date of Thrive Assessment Date Thrive assessed 12/02/23 09/07/24 09:03 Currently or been in a relationship where the following occur: No concerns reported Const Other: General: no acute distress and well developed Nutritional Appearance: well nourished Orientation/consciousness: patient oriented x3 HENMT Head: Yes normocephalic and Yes atraumatic Eyes General: appearance normal, both eyes and all related structures Pupils: Equal, round and reactive pupils present EOM: EOMs intact bilaterally Resp Effort & Inspection: normal respiratory effort Auscultation: clear to auscultation bilaterally Cardio Rate: regular rate Rhythm: regular rhythm Heart sounds: S1 normal heart sound present, S2 normal heart sound present, no gallops, no murmurs and no rubs GI Palpation (GI): No Abdominal aortic bruit present, Soft to palpation, nontender, No hepatosplenomegaly present and No Rebound tenderness present Auscultation: normal bowel sounds General: Yes no CVA tenderness Back/Spine/Pelvis Back: no CVA tenderness Extrem General: Yes normal to inspection, No edema and No calf tenderness Skin General: warm and dry. Normal skin color. Normal skin turgor Neuro General: patient oriented x3, gait normal and no focal neuro deficit Cranial nerves: Yes Equal, round and reactive pupils present Cognition (Neuro): normal cognition Gait exam (Neuro): Normal gait present Sensory Exam: No Sensory deficit (Neuro) Psych Appearance: grossly normal Affect: normal affect Attitude: cooperative Thought process: Normal thought process present Coding Level of Care Code Tele Est Pt Level 4 (37466) Diagnoses Primary hypertension I10 Hypertension type: primary hypertension Hyperlipidemia E78.5 Other iron deficiency anemia D50.8 Iron deficiency anemia type: other iron deficiency Obesity (BMI 30-39.9) E66.9 Assessment & Plan Assessment & Plan (1) Hypertension: Code(s): I10 - Essential (primary) hypertension Category: Medical Qualifiers: Hypertension type: primary hypertension Qualified Code(s): I10 - Essential (primary) hypertension Plan: Resting blood pressure is 134/98, above goal of less than 140/98 Will start hydrochlorothiazide 12.5 mg daily. Advised to take as prescribed Low-sodium diet encouraged Follow-up in 2-3 weeks or sooner with symptoms or concerns Verbalized understanding and agreed with the treatment plan (2) Hyperlipidemia: Code(s): E78.5 - Hyperlipidemia, unspecified Category: Medical Plan: She forget to get blood work done for this visit as planned Advised to fast for 10-12 hours, may drink water only, and get blood work done a few days before her next visit Verbalized understanding and agreed with the plan (3) Iron deficiency anemia: Code(s): D50.9 - Iron deficiency anemia, unspecified Category: Medical Qualifiers: Iron deficiency anemia type: other iron deficiency Qualified Code(s): D50.8 - Other iron deficiency anemias Plan: Plan as above (4) Obesity (BMI 30-39.9): Code(s): E66.9 - Obesity, unspecified Category: Medical Plan: She has not been able to lose weight in the past 5 months despite making healthy lifestyle changes She currently weighs 209 lb, BMI is 38.2 Healthy diet and routine exercise encouraged Referred to [facility] dietitian Advised to follow-up as needed Verbalized understanding and agreed with the plan Orders: Referrals Nutrition/Dietitian Referral E66.9 - Obesity, unspecified Medications: New hydrochlorothiazide 12.5 mg PO QAM 30 days 30 tabs 3RF
[2024-09-07 09:06] VITALS: BP 134/98; PULSE 78; RESP 16; TEMP 36.7; O2SAT 98; BMI 38.2
== END 2024-09-07 09:30 | disposition home or self-care (01) ==
PROVIDERS: PCP Nurse Practitioner Family; Visit Provider Nurse Practitioner Family
DX: I10 Essential (primary) hypertension (principal); E78.5 Hyperlipidemia, unspecified; E66.9 Obesity, unspecified; Z68.38 Body mass index [BMI] 38.0-38.9, adult; D50.8 Other iron deficiency anemias

== ENCOUNTER → 2024-09-07 08:55 | Outpatient (BNVA) | payer BC, SELFPAY | PROVIDERS: PCP Nurse Practitioner Family; Visit Provider Nurse Practitioner Family ==

== ENCOUNTER 2024-09-28 08:19 | Outpatient (REF) | payer BC, SELFPAY ==
[2024-09-28 11:23] LABS: Hematocrit 39.4 % (37.0-47.0); Hemoglobin 13.2 g/dl (12.0-16.0); Mean Corpuscular HGB Conc 33.5 g/dl (31.0-35.0); Mean Corpuscular Hemoglobin 30.2 pg (27.0-33.0); Mean Corpuscular Volume 90.2 fL (80.0-98.0); Mean Platelet Volume 9.9 fL (9.4-12.3); Platelet Count 333 X10*3/uL (160-400); Red Blood Count 4.37 X10*6/uL (4.20-5.50); Red Cell Distribution Width 13.6 % (11.0-16.0); White Blood Count 6.3 X10*3/uL (4.8-10.8)
[2024-09-28 11:31] LABS: Estimated Average Glucose 103 mg/dL; Hemoglobin A1C 110.0166 umol/L; Hemoglobin A1c % 5.2 % (<6.0); Total Hemoglobin (HGBA1C) 3311.4701 umol/L
[2024-09-28 11:53] LABS: Cholesterol 203 mg/dL (<200); HDL Cholesterol 42 mg/dL (>40); LDL Cholesterol Calculated 115 mg/dL (<100); Triglycerides 233 mg/dL (<150)
== END 2024-09-28 08:20 | disposition home or self-care (01) ==
LOC: HO.WFDLDS 08:19
PROVIDERS: Visit Provider Nurse Practitioner Family
DX: D50.8 Other iron deficiency anemias (principal); E78.00 Pure hypercholesterolemia, unspecified; R73.03 Prediabetes
CPT/HCPCS: 36415; 80061; 83036; 85027

== ENCOUNTER 2024-09-29 09:30 | Outpatient (AMB) | payer BC, SELFPAY ==
--- NOTE | 2024-09-29 09:33 | A.OFFVIS_ITS ---
VS Expanded 09/29/24 09:35 10/01/24 13:20 Height 5 ft 2 in 5 ft 2 in Weight 211 lb 3.245 oz 211 lb BMI 38.6 38.6 Intake Visit Reasons: Obesity Allergies No Known Allergies Allergy (Verified 09/07/24 09:11) Nutrition Presentation Details: Pt presents for MNT for obesity food frequency fruits: 0-1/d vex/wk fish -- dairy 4+ starches> 25+ water 16-24 oz/d physical activity ADL etoh/smoking--- BS Monitoring Most Recent Diabetes Results: Cholesterol 203 mg/dL (<200) H 09/28/24 HDL Cholesterol 42 mg/dL (>40) 09/28/24 Triglycerides 233 mg/dL (<150) H 09/28/24 SDE-Ghoknpu-Pu.Jeor Equation Height: 5 ft 2 in Weight: 211 lb Resting Metabolic Rate: 1548.13 Calculated Activity Level: Sedentary Calories Needed to Maintain Weight: 1857.76 Diagnosis Nutrition problem #1: food nutri know defi As related to (etiology) #1: diagnosis As evidenced by (sign/symptom) #1: knowledge deficit of diet [facility] Medical History (Updated 09/07/24 @ 09:33 by Bunny Lamas CNP) Bipolar 2 disorder, major depressive episode Hepatitis C Surgical History No pertinent past surgical history Family History Other Mental health disorder Substance abuse Social History Housing: House Patient Tobacco Use Status: Former Tobacco user Tobacco use type: Cigarette Cigarettes Per Day: 10 Years Smoked: 13 e-Cigarette/Vaping Use: Currently Using Second Hand Smoke Exposure: No service: No Current occupational status: employed Current occupation: [employer] Current occupational exposures/hazards: No Cognitive needs: No Hearing needs: No Vision needs: No Assessment & Plan Assessment & Plan (1) Obesity (BMI 30-39.9): Code(s): E66.9 - Obesity, unspecified Category: Medical Plan: Wt: 96 Kg ( 10/20 ) Est kcal needs as per MSJ: 1800 (40% carb, 30% protein/fat) Est fluid needs as per 25-30 ml/d: 2900 Est prot per day as per 1 g/kg bw: 96 Recommend fiber intake : 8-10 g per day and gradually increase to 25-28 g per day for women and 35-38 g for men or as tolerated Recommend sodium intake per day : less than 2300 mg Educated patient on: ( R = reviewed V = verbalizes understanding N/R = needs review N/A = not applicable * Food sources of carbohydrate, adequate serving sizes and its role in various health conditions: R * Differences between complex carbohydrates a simple carbohydrates, role of fiber in diet: R V N/R * Lean protein sources of foods: R V NR * Differences between types of fats and role in diet (mono on saturated fat fatty acids, saturated fatty acids, trans fats): R basic * Food sources of sodium in salt and healthy modifications for heart health in kidney health: R V R/V * Vitamins and minerals: R V N/R * Healthy plate method concept: R V N/R * Physical activity: Benefits a precaution: R V N/R Patient Instructions: work on reducing total carbs to 45-6 0 g per meal (3 meals/day) and 0-20 g as snack (2 /day ) Work on engaging in physical activity , 15 minutes at least, daily Coding Level of Care Code Nutr Indiv Intake (68255) Diagnoses Obesity (BMI 30-39.9) E66.9 Time Spent (min) 30
[2024-09-29 09:35] VITALS: BMI 38.6
[2024-10-01 13:20] VITALS: BMI 38.6
== END 2024-09-29 10:15 | disposition home or self-care (01) ==
PROVIDERS: PCP Nurse Practitioner Family; Visit Provider Dietitian, Registered
DX: E66.9 Obesity, unspecified (principal)

== ENCOUNTER → 2024-09-29 09:30 | Outpatient (BNVA) | payer BC, SELFPAY | PROVIDERS: PCP Nurse Practitioner Family; Visit Provider Dietitian, Registered | DX: E66.9 Obesity, unspecified (principal); Z71.3 Dietary counseling and surveillance; Z68.38 Body mass index [BMI] 38.0-38.9, adult | CPT/HCPCS: 97802 ==

== ENCOUNTER 2024-10-06 08:25 | Outpatient (AMB) | payer BC, SELFPAY ==
--- NOTE | 2024-10-06 08:38 | A.OFFPC_ITS ---
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 Is last menstrual period known: Yes Last menstrual period: 09/21/24 Post menopausal: No Allergies No Known Allergies Allergy (Verified 10/06/24 08:55) Medication List - Last Reconciled 10/06/24 by Bunny Lamas CNP amlodipine 10 mg PO DAILY 30 days aripiprazole (Abilify) 2 mg PO DAILY buspirone 20 mg PO DAILY ferrous sulfate 325 mg PO DAILY 30 days hydrochlorothiazide 12.5 mg PO QAM 30 days hydroxyzine HCl 25 mg PO BEDTIME multivitamin 1 tab PO DAILY Tobacco use date assessed: 10/06/24 Dental Screening Dental Screen Date: 10/06/24 Did you have a dental visit in the last 12 months?: No Did you have a dental problem in the last 6 months where you did not have access to dental care?: No Was dental information given to patient?: Patient has dentist HPI HPI Comments History of Present Illness Details 48-year-old female presents for hyperten jonathan and review of recent lab results follow-up. She admits to taking her medications as prescribed without adverse reactions. She is followed by a therapist and psychiatrist. Her psychiatrist recently put her on Abilify 2 mg daily which has been effective in controlling his symptoms. Her psychiatrist believes she has ADHD, inattentive type. She was told by her psychiatrist that she does not have bipolar disorder. She offers no complaints and denies acute symptoms at this time. Results - Labs: - CBC: Normal twice (May and September) - A1c: 5.2% - Triglycerides: 233 mg/dL; increased fr om 225 mg/dL - Total Cholesterol: 203 mg/dL; decrease d from 225 mg/dL - LDL: 115 mg/dL; decreased from 225 mg/ dL - HDL: 42 mg/dL COUNTS INCLUDE 234 BEDS AT [facility] Medical History (Updated 10/06/24 @ 09:19 by Bunny Lamas CNP) Bipolar 2 disorder, major depressive episode Hepatitis C Surgical History No pertinent past surgical history Family History Other Mental health disorder Substance abuse Social History Housing: House Patient Tobacco Use Status: Former Tobacco user Tobacco use type: Cigarette Cigarettes Per Day: 10 Years Smoked: 13 e-Cigarette/Vaping Use: Currently Using Second Hand Smoke Exposure: No service: No Current occupational status: employed Current occupation: [employer] Current occupational exposures/hazards: No Cognitive needs: No Hearing needs: No Vision needs: No Female Reproductive History Menstrual Date of last menstrual period: 09/21/24 Questionnaire Thrive Questionnaire Date Thrive assessed: 09/07/24 I am a: Patient What is your living situation today?: I have a steady place to live Within the past 12 months, did the food you bought not last and you didn't have the money to get more?: Never true Within the past 12 months, did you worry whether your food would run out before you got money to buy more?: Never true Do you have trouble paying for medicines?: No Do you have trouble getting transportation to medical appointments?: No Do you have trouble paying your heating and electricity bill?: No Do you have trouble taking care of your child, family member or friend?: No Do you have trouble with day-to-day activities such as bathing, preparing meals, shopping, managing finances, etc.?: No Are you currently unemployed and looking for a job?: No Are you interested in more education?: No Please select the resources that you would like help with: None Currently or been in a relationship where the following occur: No concerns reported THRIVE Score: 0 JUAN-7 AMB Questionnaire JUAN-7 Date JUAN - 7 assessed: 06/02/24 Feeling afraid as if something awful might happen: 0 = Not at all Source: Developed by Drs. Humberto Gutiérrez, Gail Jauregui, Don Madsen and colleagues, with an educational jessika from [employer]. Review of Systems Const Details: Const Denies chills, Denies fatigue, Denies fever(s), Denies headache(s) and Denies weakness ENT Denies dizziness and Denies headache(s) Card Denies chest pain, Denies lightheadedness, Denies dyspnea and Denies other (Palpitations) Resp Denies cough, Denies dyspnea, Denies wheezing and Denies other ( shortness of breath) GI Denies abdominal pain, Denies melena, Denies hematochezia, Denies change in bowel habits, Denies dyspepsia and Denies nausea Denies hematuria and Denies dysuria Musc Denies abnormal gait, Denies myalgias, Denies arthralgias, Denies numbness and Denies tingling Skin/Breast Denies rash, Denies unusual bruising and Denies wounds Neuro Denies abnormal gait, Denies dizziness, Denies headache(s), Denies memory loss, Denies numbness, Denies Sensory deficit (Neuro), Denies tingling and Denies weakness Psych Denies anxiety, Denies depression, Denies memory loss Endo Denies cold intolerance, Denies fatigue, Denies heat intolerance, Denies polydipsia and Denies polyuria Aller/Immun Denies wheezing Physical exam (Primary Care) Vital Signs: Last Vital Signs Temp 98.4 F 10/06/24 08:45 Pulse 75 10/06/24 08:45 Resp 16 10/06/24 08:45 BP 110/80 10/06/24 08:59 Pulse Ox 95 10/06/24 08:45 Oxygen Delivery Method Room Air 10/06/24 08:45 BMI result Body Mass Index 37.7 Tobacco/Smoking Status: Tobacco use Status Tobacco use date assessed 10/06/24 10/06/24 08:49 Patient Tobacco Use Status Former Tobacco user 10/06/24 08:40 Tobacco use type Cigarette 10/06/24 08:40 e-Cigarette/Vaping Use Currently Using 10/06/24 08:40 Thrive Assessment: Date of Thrive Assessment Date Thrive assessed 09/07/24 10/06/24 08:40 Currently or been in a relationship where the following occur: No concerns reported Const Other: General: no acute distress and well developed Nutritional Appearance: well nourished Orientation/consciousness: patient oriented x3 HENMT Head: Yes normocephalic and Yes atraumatic Eyes General: appearance normal, both eyes and all related structures Pupils: Equal, round and reactive pupils present EOM: EOMs intact bilaterally Resp Effort & Inspection: normal respiratory effort Auscultation: clear to auscultation bilaterally Cardio Rate: regular rate Rhythm: regular rhythm Heart sounds: S1 normal heart sound present, S2 normal heart sound present, no gallops, no murmurs and no rubs GI Palpation (GI): No Abdominal aortic bruit present, Soft to palpation, nontender, No hepatosplenomegaly present and No Rebound tenderness present Auscultation: normal bowel sounds General: Yes no CVA tenderness Back/Spine/Pelvis Back: no CVA tenderness Cervical Spine: cervical ROM normal and No Cervical spine tenderness Thoracic/Lumbar Spine: thoraco-lumbar ROM normal, No pain with thoraco-lumbar ROM, No thoracic spinal tenderness and No lumbar spinal tenderness Extrem General: Yes normal to inspection, No edema and No calf tenderness Skin General: warm and dry. Normal skin color. Normal skin turgor Neuro General: patient oriented x3, gait normal and no focal neuro deficit Cranial nerves: Yes Equal, round and reactive pupils present Cognition (Neuro): normal cognition Gait exam (Neuro): Normal gait present Sensory Exam: No Sensory deficit (Neuro) Psych Appearance: grossly normal Affect: normal affect Attitude: cooperative Thought process: Normal thought process present Coding Level of Care Code Est Pt Level 4 (46598) Diagnoses Primary hypertension I10 Hypertension type: primary hypertension Hyperlipidemia E78.5 Other iron deficiency anemia D50.8 Iron deficiency anemia type: other iron deficiency ADHD, predominantly inattentive type F90.0 Assessment & Plan Assessment & Plan (1) Hypertension: Code(s): I10 - Essential (primary) hypertension Category: Medical Qualifiers: Hypertension type: primary hypertension Qualified Code(s): I10 - Essential (primary) hypertension Plan: Resting blood pressure is 110/80, within goal of less than 140/90. Continue current treatment regimen. Low-sodium diet encouraged. Follow-up in 2 months or sooner with symptoms or concerns. Verbalized understanding and agreed with the plan. (2) Hyperlipidemia: Code(s): E78.5 - Hyperlipidemia, unspecified Category: Medical Plan: Recent triglycerides, total cholesterol, and LDL levels are elevated. Advised to limit foods high in saturated fat and avoid foods high in trans fat. Routine exercise encouraged. Advised to fast for 10-12 hours, may drink water, and get lipid panel blood work done 2-3 days before next visit. Follow-up in 3 months. Verbalized understanding and agreed with the plan. (3) Iron deficiency anemia: Code(s): D50.9 - Iron deficiency anemia, unspecified Category: Medical Qualifiers: Iron deficiency anemia type: other iron deficiency Qualified Code(s): D50.8 - Other iron deficiency anemias Plan: CBC has been normal twice, May and September. Continue to take ferrous phosphate as prescribed. Will recheck CBC in a few months and make changes as needed. Verbalized understanding and agreed with the plan. (4) ADHD, predominantly inattentive type: Code(s): F90.0 - Attention-deficit hyperactivity disorder, predominantly inattentive type Category: Medical Plan: Continue with current treatment regimen of Abilify 2 mg daily. Follow-up with psychiatrist and therapist as planned. Orders: Orders Lipid Panel 2 Months E78.5 - Hyperlipidemia, unspecified
[2024-10-06 08:45] VITALS: BP 109/56; PULSE 75; RESP 16; TEMP 36.9; O2SAT 95; BMI 37.7
[2024-10-06 08:59] VITALS: BP 110/80
== END 2024-10-06 09:10 | disposition home or self-care (01) ==
PROVIDERS: PCP Nurse Practitioner Family; Visit Provider Nurse Practitioner Family
DX: I10 Essential (primary) hypertension (principal); E78.5 Hyperlipidemia, unspecified; D50.8 Other iron deficiency anemias; F90.0 Attention-deficit hyperactivity disorder, predominantly inattentive type

== ENCOUNTER 2024-10-23 11:04 | Outpatient (AMB) | payer BC, SELFPAY ==
[2024-10-23 11:34] VITALS: BP 118/76; PULSE 80; O2SAT 100; BMI 38.0
--- NOTE | 2024-10-23 11:34 | A.OFFVIS_ITS ---
Vital Signs 10/23/24 11:34 Height 5 ft 2 in Weight 207 lb 10.807 oz BMI 38.0 BP 118/76 Blood Pressure Location Rt brachial Position Sitting Pulse 80 Pulse Source Pulse Oximeter Pulse Oximetry (%) 100 Oxygen Delivery Method Room Air Intake Visit Reasons: Colonoscopy Screening Intake Note: NEW PATIENT Dipti presents in office today for a scheduled colo scrn Prior hx of colo/egd? Initial Meds and Allergies reviewed? Y Any significant concerns or questions? L side abd distention and recent weight gain, mild to mod discomfort. Prev hx of hep C >15 yrs ago. Pharmacy verified? [facility] Important FMHx? Hx of extensive polyps (mother) Shrink Pit Operator Required: No Allergies No Known Allergies Allergy (Verified 10/23/24 11:35) HPI HPI Colonoscopy Screening: Details: 48 year old? female here today for pre colonoscopy screening.? Patient was sent to us by her PCP.? This is her first colonoscopy screening.? Patient denies any gastrointestinal symptoms in the past or at present.? However patient does admit that occasionally she will not move her bowels daily. Denies any personal or family history of gastrointestinal disease, colon polyps, or CRC.? Denies history of difficulty with sedation or anesthesia in the past.? History of sleep apnea patient is on CPAP daily.? Denies any history of cardiac, renal, pulmonary, or hepatic disease.?? History of hep C treated 15 years ago. Patient is not on any anticoagulation [facility] Medical History Bipolar 2 disorder, major depressive episode Hepatitis C Surgical History No pertinent past surgical history Family History Other Mental health disorder Substance abuse Social History Housing: House Patient Tobacco Use Status: Former Tobacco user Tobacco use type: Cigarette Cigarettes Per Day: 10 Years Smoked: 13 e-Cigarette/Vaping Use: Currently Using Second Hand Smoke Exposure: No service: No Current occupational status: employed Current occupation: [employer] Current occupational exposures/hazards: No Cognitive needs: No Hearing needs: No Vision needs: No Review of Systems Const Denies weight gain and Denies weight loss ENT Reports no additional complaints, Denies dysphagia and Denies odynophagia Card Reports no additional complaints Resp Reports no additional complaints GI Denies abdominal pain, Denies belching, Denies melena, Denies bloating, Denies change in bowel habits, Reports constipation, Denies dysphagia, Denies excessive flatus, Denies dyspepsia, Denies heartburn, Denies diarrhea, Denies loose stools, Denies nausea, Denies odynophagia and Denies vomiting Reports no additional complaints Musc Reports no additional complaints Neuro Reports no additional complaints Psych Reports no additional complaints Endo Reports no additional complaints Physical Exam Vital Signs: Last Vital Signs Pulse 80 10/23/24 11:34 BP 118/76 10/23/24 11:34 Pulse Ox 100 10/23/24 11:34 Oxygen Delivery Method Room Air 10/23/24 11:34 BMI result Body Mass Index 38.0 Const General: healthy appearing and no acute distress Nutritional Appearance: obese Orientation/consciousness: patient oriented x3 Resp Effort & Inspection: normal respiratory effort, able to speak in complete sentences, no tracheal deviation and symmetric chest movement Auscultation: clear to auscultation bilaterally Cardio Rate: regular rate GI Inspection: Yes normal to inspection, No distended and Yes obesity Palpation (GI): Soft to palpation, not firm, nontender and No hepatosplenomegaly present Auscultation: normal bowel sounds General: Yes no CVA tenderness Back/Spine/Pelvis Back: no CVA tenderness Skin General skin exam: elasticity normal, turgor normal and dry skin Neuro General: patient oriented x3 Psych Appearance: grossly normal Mental Status: mental status grossly normal Assessment & Plan Assessment & Plan (1) Colon cancer screening: Code(s): Z12.11 - Encounter for screening for malignant neoplasm of colon Category: Medical Plan Patient denies any GI, cardiac or respiratory symptoms.? However patient admits that sometimes she will be constipated. Will send script for Dulcolax and patient can take it daily. Denies any issues with anesthesia in the past.? History of sleep apnea on CPAP. History of hep C and treated 15 years ago. Not on any anticoagulation therapy.? No family or personal history of colon cancer or polyps.? Patient denies melena, hematochezia, unintentional weight loss or ribbon like stools.? Discussed at length the pre-procedure,? prep, diet & medications as well as what to expect prior, during and after the procedure.?? Stressed the importance of good bowel prep.? Recommended the use of Vaseline or Calmoseptine OTC & baby wipes with bowel movements to promote comfort.? ?Patient verbalizes understanding and agrees to plan of care.? She was given the opportunity to ask questions and all questions answered.? We will see her after the procedure.? Medications: New bisacodyl (Dulcolax (bisacodyl)) 10 mg (2 x 5 mg) PO BEDTIME 180 tabs 4RF polyethylene glycol 3350 (Miralax) As directed by gastroenterology [facility] at [facility] 238 grams PO ONCE 238 grams 0RF Z12.11 - Encounter for screening for malignant neoplasm of colon Coding Level of Care Code New Pt Level 3 (25535) Diagnoses Colon cancer screening Z12.11 Time Spent (min) 40 Comment 30 minutes spent with patient and additional 10 minutes spent reviewing her records
== END 2024-10-23 14:35 | disposition home or self-care (01) ==
PROVIDERS: PCP Nurse Practitioner Family; Visit Provider Nurse Practitioner Family
DX: Z01.818 Encounter for other preprocedural examination (principal); Z12.11 Encounter for screening for malignant neoplasm of colon
CPT/HCPCS: S0285

== ENCOUNTER 2024-12-11 08:26 | Outpatient (AMB) | payer BC, SELFPAY ==
--- NOTE | 2024-12-11 08:42 | A.OFFPC_ITS ---
Vital Signs 12/11/24 08:45 Height 5 ft 2 in Weight 206 lb 2 oz BMI 37.7 BP 120/70 Blood Pressure Location Lt brachial Position Sitting Respiration 14 Pulse 67 Pulse Source Pulse Oximeter Temp 97.8 F Temp Source Oral Pulse Oximetry (%) 99 Oxygen Delivery Method Room Air Intake Visit Reasons: HLD, HTN Intake Note: follow up htn pt will get labs done on her way out after her visit Allergies No Known Allergies Allergy (Verified 12/11/24 09:05) Medication List - Last Reconciled 12/11/24 by Bunny Lamas CNP amlodipine 10 mg PO DAILY 30 days bisacodyl (Dulcolax (bisacodyl)) 10 mg (2 x 5 mg) PO BEDTIME bupropion HCl SR (Wellbutrin SR) 150 mg PO BID buspirone 20 mg PO TID ferrous sulfate 325 mg PO DAILY 30 days hydrochlorothiazide 12.5 mg PO QAM 30 days hydroxyzine HCl 25 mg PO BEDTIME multivitamin 1 tab PO DAILY polyethylene glycol 3350 (Miralax) 238 grams PO ONCE Tobacco use date assessed: 10/06/24 Dental Screening Dental Screen Date: 10/06/24 HPI HPI Comments History of Present Illness Details 49-year-old female presents for hyperten jonathan and hyperlipidemia follow- up. She admits to taking her medications as prescribed without adverse reactions. She admits to making healthy dietary choices and exercising routinely. She is followed by a datastage architect [facility]. She notes that anxiety and depression are generally well controlled. She continues to see her therapist. She offers no complaints and denies acute symptoms at this time. [facility] Medical History Bipolar 2 disorder, major depressive episode Hepatitis C Surgical History No pertinent past surgical history Family History Other Mental health disorder Substance abuse Social History Housing: House Patient Tobacco Use Status: Former Tobacco user Tobacco use type: Cigarette Cigarettes Per Day: 10 Years Smoked: 13 e-Cigarette/Vaping Use: Currently Using Second Hand Smoke Exposure: No service: No Current occupational status: employed Current occupation: [employer] Current occupational exposures/hazards: No Cognitive needs: No Hearing needs: No Vision needs: No Questionnaire PHQ-9 Over the last 2 weeks, how often have you been bothered by any of the following problems? 1. Little interest or pleasure in doing things: nearly every day 2. Feeling down, depressed, or hopeless: more than half the days 3. Trouble falling or staying asleep, or sleeping too much: several days 4. Feeling tired or having little energy: several days 5. Poor appetite or overeating: not at all 6. Feeling bad about yourself - or that you are a failure or have let yourself or your family down: several days 7. Trouble concentrating on things, such as reading the newspaper or watching television: nearly every day 8. Moving or speaking so slowly that other people could have noticed. Or the opposite - being so fidgety or restless that you have been moving around a lot more than usual: several days 9. Thoughts that you would be better off or of hurting yourself in some way: not at all Total score: 12 Depression Screening Interpretation: Positive Depression Screening Follow-up: Existing condition and In treatment Depression Screening Done: Yes Source: Developed by Drs. Humberto Gutiérrez, Gail Jauregui, Don Madsen and colleagues, with an educational jessika from [employer]. Thrive Questionnaire Date Thrive assessed: 09/07/24 I am a: Patient What is your living situation today?: I have a steady place to live Within the past 12 months, did the food you bought not last and you didn't have the money to get more?: Never true Within the past 12 months, did you worry whether your food would run out before you got money to buy more?: Never true Do you have trouble paying for medicines?: No Do you have trouble getting transportation to medical appointments?: No Do you have trouble paying your heating and electricity bill?: No Do you have trouble taking care of your child, family member or friend?: No Do you have trouble with day-to-day activities such as bathing, preparing meals, shopping, managing finances, etc.?: No Are you currently unemployed and looking for a job?: No Are you interested in more education?: No Please select the resources that you would like help with: None Currently or been in a relationship where the following occur: No concerns reported THRIVE Score: 0 AUDIT C Alcohol Use Questionnaire (AUDIT-C) 1. How often do you have a drink containing alcohol?: Never Total Score: 0 JUAN-7 AMB Questionnaire JUAN-7 Date JUAN - 7 assessed: 06/02/24 Feeling nervous, anxious, or on edge: 1 = Several days Not being able to stop or control worryin = Not at all Worrying too much about different things: 0 = Not at all Trouble relaxin = Not at all Being so restless that it is hard to sit still: 0 = Not at all Becoming easily annoyed or irritable: 1 = Several days Feeling afraid as if something awful might happen: 1 = Several days Total JUAN-7 score (0-4 normal; 5-9 mild; 10-14 moderate; 15-21 severe): 3 Source: Developed by Drs. Humberto Gutiérrez, Gail Jauregui, Don Madsen and colleagues, with an educational jessika from [employer]. Review of Systems Const Details: Const Denies chills, Denies fatigue, Denies fever(s), Denies headache(s) and Denies weakness ENT Denies dizziness and Denies headache(s) Card Denies chest pain, Denies lightheadedness, Denies dyspnea and Denies other (Palpitations) Resp Denies cough, Denies dyspnea, Denies wheezing and Denies other ( shortness of breath) GI Denies abdominal pain, Denies melena, Denies hematochezia, Denies change in bowel habits, Denies dyspepsia and Denies nausea Denies hematuria and Denies dysuria Musc Denies abnormal gait, Denies myalgias, Denies arthralgias, Denies numbness and Denies tingling Skin/Breast Denies rash, Denies unusual bruising and Denies wounds Neuro Denies abnormal gait, Denies dizziness, Denies headache(s), Denies memory loss, Denies numbness, Denies Sensory deficit (Neuro), Denies tingling and Denies weakness Psych Denies anxiety, Denies depression, Denies memory loss Endo Denies cold intolerance, Denies fatigue, Denies heat intolerance, Denies polydipsia and Denies polyuria Aller/Immun Denies wheezing Physical exam (Primary Care) Vital Signs: Last Vital Signs Temp 97.8 F 12/11/24 08:45 Pulse 67 12/11/24 08:45 Resp 14 12/11/24 08:45 BP 120/70 12/11/24 08:45 Pulse Ox 99 12/11/24 08:45 Oxygen Delivery Method Room Air 12/11/24 08:45 BMI result Body Mass Index 37.7 Tobacco/Smoking Status: Tobacco use Status Tobacco use date assessed 10/06/24 12/11/24 08:42 Patient Tobacco Use Status Former Tobacco user 12/11/24 08:42 Tobacco use type Cigarette 12/11/24 08:42 e-Cigarette/Vaping Use Currently Using 12/11/24 08:42 PHQ-9: PHQ-9 Score PHQ-9: Total score 12 12/11/24 08:42 Depression Screening Interpretation: Positive Depression Screening Follow-up: Existing condition and In treatment Thrive Assessment: Date of Thrive Assessment Date Thrive assessed 09/07/24 12/11/24 08:42 Currently or been in a relationship where the following occur: No concerns reported Const Other: General: no acute distress and well developed Nutritional Appearance: well nourished Orientation/consciousness: patient oriented x3 HENMT Head: Yes normocephalic and Yes atraumatic Eyes General: appearance normal, both eyes and all related structures Pupils: Equal, round and reactive pupils present EOM: EOMs intact bilaterally Resp Effort & Inspection: normal respiratory effort Auscultation: clear to auscultation bilaterally Cardio Rate: regular rate Rhythm: regular rhythm Heart sounds: S1 normal heart sound present, S2 normal heart sound present, no gallops, no murmurs and no rubs GI Palpation (GI): No Abdominal aortic bruit present, Soft to palpation, nontender, No hepatosplenomegaly present and No Rebound tenderness present Auscultation: normal bowel sounds General: Yes no CVA tenderness Back/Spine/Pelvis Back: no CVA tenderness Cervical Spine: cervical ROM normal and No Cervical spine tenderness Thoracic/Lumbar Spine: thoraco-lumbar ROM normal, No pain with thoraco-lumbar ROM, No thoracic spinal tenderness and No lumbar spinal tenderness Extrem General: Yes normal to inspection, No edema and No calf tenderness Skin General: warm and dry. Normal skin color. Normal skin turgor Neuro General: patient oriented x3, gait normal and no focal neuro deficit Cranial nerves: Yes Equal, round and reactive pupils present Cognition (Neuro): normal cognition Gait exam (Neuro): Normal gait present Sensory Exam: No Sensory deficit (Neuro) Psych Appearance: grossly normal Affect: normal affect Attitude: cooperative Thought process: Normal thought process present Coding Level of Care Code Est Pt Level 3 (10310) Diagnoses Primary hypertension I10 Hypertension type: primary hypertension Hyperlipidemia E78.5 Assessment & Plan Assessment & Plan (1) Hypertension: Code(s): I10 - Essential (primary) hypertension Category: Medical Qualifiers: Hypertension type: primary hypertension Qualified Code(s): I10 - Essential (primary) hypertension Plan: Blood pressure is 120/70, within goal of less than 140/90. Continue current treatment regimen. Follow-up in 3 months or sooner with symptoms or concerns. Verbalized understanding and agreed with treatment plan. (2) Hyperlipidemia: Code(s): E78.5 - Hyperlipidemia, unspecified Category: Medical Plan: She did not get blood work today as planned for this visit and will do so at the end of the visit. Advised to limit foods high in saturated fat and avoid foods high in trans fat. Routine exercise encouraged. Will review lipid panel results and make changes as needed. Verbalized understanding and agreed with treatment plan.
[2024-12-11 08:45] VITALS: BP 120/70; PULSE 67; RESP 14; TEMP 36.6; O2SAT 99; BMI 37.7
== END 2024-12-11 10:53 | disposition home or self-care (01) ==
PROVIDERS: PCP Nurse Practitioner Family; Visit Provider Nurse Practitioner Family
DX: I10 Essential (primary) hypertension (principal); E78.5 Hyperlipidemia, unspecified

== ENCOUNTER 2024-12-11 09:26 | Outpatient (REF) | payer BC, SELFPAY ==
[2024-12-11 11:28] LABS: Cholesterol 192 mg/dL (<200); HDL Cholesterol 40 mg/dL (>40); LDL Cholesterol Calculated 109 mg/dL (<100); Triglycerides 217 mg/dL (<150)
== END 2024-12-11 09:27 | disposition home or self-care (01) ==
LOC: HO.WFDLDS 09:26
PROVIDERS: Visit Provider Nurse Practitioner Family
DX: E78.5 Hyperlipidemia, unspecified (principal)
CPT/HCPCS: 36415; 80061

== ENCOUNTER 2025-03-09 07:36 | Outpatient (REF) | payer BC, SELFPAY ==
--- OUTSIDE RECORDS SUMMARY | 2025-03-09 07:37 | XMS_ITS | Encounter Summary ---
Author Organization [facility] Address [address] [place] [address] Care Team Providers Care Order Puller Name Role Phone Mian Lam MD Primary Care Provider Unava wvLio Fleming MD Primary Care Provider [phone] Encounter Details Date Type Department Care Team Description 05/30/2015 Transfer Records Medical Records [address] [place] [address] Patrica Handley MD Social History Tobacco Use Types Packs/Day Years Used Date Smoking Tobacco: Never Assessed Alcohol Habits Answer Date Recorded How often do you have a drink containing alcohol ? Never 09/29/2019 How many drinks containing a lcohol do you have on a typical day when you are drinking? Not asked How often do you have six or more drinks on one occasion? Not asked Sex Assigned at Date Recorded Not on file documented as of this encounter Plan of Treatment Not on file documented as of this encounter Visit Diagnoses Not on filedocumented in this encounter Care Teams Order Puller Relationship Specialty Start Date End Date Mian Lam MD PCP - General Internal Medicine 02/06/19 07/18/21 Lio Levine MD [address] [place], [place] [id number] PCP - General Internal Medicine 07/19/21 documented as of this encounter
--- OUTSIDE RECORDS SUMMARY | 2025-03-09 07:37 | XMS_ITS | Encounter Summary ---
Author Organization [facility] Address [address] [place] [address] Care Team Providers Care Garbage Stoker Name Role Phone Mian Lam MD [facility] Primary Care Provider [phone] Encounter Details Date Type Department Care Team Description 04/16/2019 Sales Operations Consultant Report Medical Records [address] [place] [address] Nani Hannah MD Social History Tobacco Use Types Packs/Day Years Used Date Smoking Tobacco: Former Smokeless Tobacco: Never Alcohol Habits Answer Date Recorded How often [...] on filedocumented in this encounter Care Teams Garbage Stoker Relationship Specialty Start Date End Date Mian Lam MD PCP - General Internal Medicine 02/06/19 07/18/21 Lio Levine MD [address] [place], [place] [phone] PCP - General Internal Medicine 07/19/21 documented as of this encounter
--- OUTSIDE RECORDS SUMMARY | 2025-03-09 07:37 | XMS_ITS | Encounter Summary ---
Author Organization [facility] Address [address] [place] [address] Care Team Providers Care Mold Yard Worker Name Role Phone Avtar Ramirez MD Primary Care Provider Lio Kohler MD Primary Care Provider [phone]- [phone] Reason for Visit * Reason Onset Date Comments Cough 10/12/2020 Sore Throat 10/12/2020 pain, chest 10/12/2020 Encounter Details Date Type Department Care Team Description 10/12/2020 Telephone Medicine/Pediatrics - [address] [id number] Avtar Ramirez MD Cough; Sore Throat; pain, chest Social History Tobacco Use Types Packs/Day Years Used Date Smoking Tobacco: Former Cigarettes 0.3 20 S tarted: 10/28/2004 Smokeless Tobacco: Never Alcohol Use Standard Drinks/Week Comments No 0 (1 standard drink = 0.6 oz pur e alcohol) History of alcohol abuse Alcohol Habits Answer Date Recorded How often do you have a drink containing alcohol ? Never 09/29/2019 How many drinks containing a lcohol do you have on a typical day when you are drinking? Not asked How often do you have six or more drinks on one occasion? Not asked Sex Assigned at Date Recorded Not on file documented as of this encounter Miscellaneous Notes * Telephone Encounter - Alexandra Bridges L.P.N. - 10/12/2020 2:59 PM EST Patient c/o moist cough with extreme fatigue Denies chest pressure Talking in full sentences without shortness of breath Appointment scheduled for 10/14 * Telephone Encounter - Damaris Vera - 10/12/2020 2:43 PM EST Symptoms patient is presenting: Patient c/o a cough, chest pressure, sore throat and body aches For ALL patients calling to schedule any appointment (routine, sick visit, follow up, consult, etc.) in the outpatient setting please ask the following questions: ?? Do you have fever of higher than 101, sore throat with difficulty swallowing or severe shortnessof breath? NO If YES to any of these above symptoms, send a message to triage and do not book. Red dot. If no, an audio or video visit should be booked. ?? Have you had close contact with someone with Coronavirus in the last 14 days? Husbands work did have an outbreak of positive covids, but was not tested ?? Have you traveled abroad? NO ?? Have you traveled recently to another state outside of [place], [place], [place], [place], [place], [place], [place]? NO o If yes, did you quarantine for 14 days or have a negative covid test? NO If yes to any of the above, patient is not to be scheduled in office until after 14 day quarantine or negative covid test. If pain or injury related was it due to an accident at work or from a motor vehicle accident? NO If yes, gather 3rd alliance party insurance information Date of accident/Injury: How long has patient had these symptoms?: past couple days PCP: AVTAR RAMIREZ Payor: [employer] / Plan: HMO $25 HECTOR [id number] / Product Type: HMO [id number] documented in this encounter Plan of Treatment Not on file documented as of this encounter Visit Diagnoses Not on filedocumented in this encounter Care Teams Mold Yard Worker Relationship Specialty Start Date End Date Avtar Ramirez MD PCP - General Internal Medicine 02/06/19 07/18/21 Lio Levine MD [address] [place] [id number] PCP - General Internal Medicine 07/19/21 documented as of this encounter
--- OUTSIDE RECORDS SUMMARY | 2025-03-09 07:37 | XMS_ITS | Encounter Summary ---
Author Organization [facility] Address [address] [place] [address] Care Team Providers Care Auto Machinist Name Role Phone Mian Lam MD Primary Care Provider Salimaga Lio Kiran MD Primary Care Provider [phone]- [phone] Encounter Details Date Type Department Care Team Description 03/10/2019 Transfer Records Medical Records [address] [place] [address] Abstract, Provider Social History Tobacco Use Types Packs/Day Years [...] on file documented as of this encounter Nursing Notes * Simi Blanchard - 03/10/2019 1:10 PM EDT Records received from [facility] sent to Dipti Cabrera RN ecommerce manager. documented in this encounter Plan of Treatment Not on file documented as of this encounter Visit Diagnoses Not on filedocumented in this encounter Care Teams Auto Machinist Relationship Specialty Start Date End Date Mian Lam MD PCP - General Internal Medicine 02/06/19 07/18/21 Lio Levine MD [address] [place] [id number] PCP - General Internal Medicine 07/19/21 documented as of this encounter
--- OUTSIDE RECORDS SUMMARY | 2025-03-09 07:37 | XMS_ITS | Encounter Summary ---
Author Organization [facility] Address [address] [place] [address] Care Team Providers Care Fruit Picker Machine Operator Name Role Phone Mian Lam MD Primary Care Provider Unava wvLio Fleming MD Primary Care Provider [phone]- [phone] Encounter Details Date Type Department Care Team Description 03/04/2019 Release of Information Medical Records [address] [place] [id number] Abstract, Provider Social History Tobacco Use Types [...] on filedocumented in this encounter Care Teams Fruit Picker Machine Operator Relationship Specialty Start Date End Date Mian Lam MD PCP - General Internal Medicine 02/06/19 07/18/21 Lio Levine MD [address] [place], [place] [phone] PCP - General Internal Medicine 07/19/21 documented as of this encounter
--- OUTSIDE RECORDS SUMMARY | 2025-03-09 07:37 | XMS_ITS | Encounter Summary ---
Author Organization Formerly [facility] Address [address] [place] [address] Care Team Providers Care Pattern Changer And Repairer Name Role Phone Lio Levine MD Primary Care Provider [phone] Reason for Visit * Reason Comments E-prescribe Rx Request Encounter Details Date Type Department Care Team Description 12/07/2021 Refill Adult Medicine - [place] [address], [place] [id number] Lio Levine MD [address], [place] [id number] E-prescribe Rx Request Social History Tobacco Use Types Packs/Day Years Used Date Smoking Tobacco: Every Day Cigarettes 0.5 20 Started: 10/28/2004 Smokeless Tobacco: Never Alcohol Use Standard [...] Telephone Encounter - Alexandra Bridges L.P.N. - 12/19/2021 7:35 AM EST My Chart message sent Needs appointment Last seen 02/02/21 * Telephone Encounter - Shayla Amin - 12/18/2021 3:15 PM EST Left message for patient to call back and schedule appointment * Telephone Encounter - Simi Ashton M.A. - 12/07/2021 7:34 AM EST Appt needed lorie Diane - 02/02/21 Nov - 09/29/21 Cancelled ( pt request) 10/12/21 cancelled ( pt request) 11/29/21 cancelled ( center request) documented in this encounter Plan of Treatment Not on file documented as of this encounter Visit Diagnoses Diagnosis Anxiety Anxiety state, unspecified documented in this encounter Care Teams Pattern Changer And Repairer Relationship Specialty Start Date End Date Lio Levine MD [address] [place] [id number] PCP - General Internal Medicine 07/19/21 documented as of this encounter
[2025-03-09 12:13] LABS: Cholesterol 193 mg/dL (<200); HDL Cholesterol 36 mg/dL (>40); LDL Cholesterol Calculated 123 mg/dL (<100); Triglycerides 170 mg/dL (<150)
== END 2025-03-09 07:37 | disposition home or self-care (01) ==
LOC: HO.WFDLDS 07:36
PROVIDERS: Visit Provider Nurse Practitioner Family
DX: E78.5 Hyperlipidemia, unspecified (principal)
CPT/HCPCS: 36415; 80061

== ENCOUNTER 2025-06-14 07:32 | Day surgery (SDC) | payer BC, SELFPAY ==
[2025-06-10 13:07] VITALS: BMI 38.0
--- OUTSIDE RECORDS SUMMARY | 2025-06-10 14:47 | XMS_ITS ---
Author Name [facility] Organization Unknown Care Team Organization Name Specialty Phone Email Start Date End Da te [facility] Termed, PROVIDER Primary Care 09/04/202205/28
--- NOTE | 2025-06-11 10:01 | HO.ANESPROP2 ---
Documented by User: Lavern Saeed NP 06/11/25 10:02 HPI - Anesthesia Eval Consult details Narrative: 49yo F for Colonoscopy PMFSH Active Problems Active Problems: All Active Problems ADHD, predominantly inattentive type (Acute) Obesity (BMI 30-39.9) (Acute) Hyperlipidemia (Acute) Colon cancer screening (Acute) Bipolar 2 disorder, major depressive episode (Acute) Hypercholesterolemia (Acute) PMDD (premenstrual dysphoric disorder) (Acute) Prediabetes (Acute) Headache (Acute) Hypertension (Acute) Elevated LDL cholesterol level (Acute) Elevated fasting glucose (Acute) Iron deficiency anemia (Acute) Elevated blood pressure reading in office without diagnosis of hypertension (Acute) Sleep disturbance (Acute) Laboratory tests ordered as part of a complete physical exam (CPE) (Acute) Depression (Acute) Anemia (Acute) Obesity (BMI 30.0-34.9) (Acute) Body mass index [BMI] 34.0-34.9, adult (Acute) Normal physical exam (Acute) Nicotine dependence (Acute) History of drug abuse (Acute) Neoplasm of uncertain behavior of skin (Acute) Anxiety (Acute) Laboratory exam ordered as part of routine general medical examination (Acute) Exposure to COVID-19 virus (Acute) Flu-like symptoms (Acute) Past Medical History Medical History Prediabetes Anxiety Hypercholesteremia Depression ADHD HTN (hypertension) Iron deficiency anemia Bipolar 2 disorder, major depressive episode Hepatitis C Family History Family History Other Mental health disorder Substance abuse Surgical History Surgical History (Updated 06/14/25 @ 08:10 by Kamila Castillo RN) History of carpal tunnel release of both wrists Social History Social History Housing: House Patient Tobacco Use Status: Current everyday Tobacco user Tobacco use type: Smokeless Tobacco Cigarettes Per Day: 10 Years Smoked: 13 e-Cigarette/Vaping Use: Currently Using Second Hand Smoke Exposure: No Use of substances other than those prescribed or required for medical reasons: No Are you DNR?: No Advance Directives: No Advance Directives Information Provided: Yes service: No Current occupational status: employed Current occupation: [employer] Current occupational exposures/hazards: No Cognitive needs: No Hearing needs: No Vision needs: No Meds Allergies Allergy/AdvReac Type Severity Reaction Status Date / Time No Known Allergies Allergy Verified 06/14/25 08:10 Home Medications ?Medication ?Instructions ?Recorded ?Confirmed ?Last Taken ?Type hydroxyzine HCl 25 mg tablet 25 mg PO BEDTIME PRN Anxiety 10/06/24 06/14/25 Unknown History buspirone 10 mg tablet 20 mg PO TID 10/23/24 06/14/25 Unknown History bupropion HCl 150 mg tablet,12 hr 150 mg PO BID 12/11/24 06/14/25 Unknown History sustained-release (Wellbutrin SR) magnesium 200 mg tablet 400 mg PO BEDTIME 06/14/25 06/14/25 Unknown History melatonin 3 mg tablet 3 mg PO BEDTIME PRN Insomnia 06/14/25 06/14/25 Unknown History Exam Height,Weight and Vital Signs: Height 5 ft 2 in Weight 94.177 kg Assessment and Plan Assessment Anesthesia Assessment: Chart Reviewed Documented by User: Sekou Schumacher MD 06/14/25 08:36 [facility] Past Medical History Medical History Prediabetes Anxiety Hypercholesteremia Depression ADHD HTN (hypertension) Iron deficiency anemia Bipolar 2 disorder, major depressive episode Hepatitis C Patient : No Family History Family History Other Mental health disorder Substance abuse Surgical History Surgical History (Updated 06/14/25 @ 08:10 by Kamila Castillo RN) History of carpal tunnel release of both wrists Social History Social History Housing: House Patient Tobacco Use Status: Current everyday Tobacco user Tobacco use type: Smokeless Tobacco Cigarettes Per Day: 10 Years Smoked: 13 e-Cigarette/Vaping Use: Currently Using Second Hand Smoke Exposure: No Use of substances other than those prescribed or required for medical reasons: No Are you DNR?: No Advance Directives: No Advance Directives Information Provided: Yes service: No Current occupational status: employed Current occupation: [employer] Current occupational exposures/hazards: No Cognitive needs: No Hearing needs: No Vision needs: No Meds Allergies Allergy/AdvReac Type Severity Reaction Status Date / Time No Known Allergies Allergy Verified 06/14/25 08:10 Home Medications ?Medication ?Instructions ?Recorded ?Confirmed ?Last Taken ?Type hydroxyzine HCl 25 mg tablet 25 mg PO BEDTIME PRN Anxiety 10/06/24 06/14/25 Unknown History buspirone 10 mg tablet 20 mg PO TID 10/23/24 06/14/25 Unknown History bupropion HCl 150 mg tablet,12 hr 150 mg PO BID 12/11/24 06/14/25 Unknown History sustained-release (Wellbutrin SR) magnesium 200 mg tablet 400 mg PO BEDTIME 06/14/25 06/14/25 Unknown History melatonin 3 mg tablet 3 mg PO BEDTIME PRN Insomnia 06/14/25 06/14/25 Unknown History Exam Airway Mallampati Class: III TM Dist: >3cm Neck ROM: Full Loose/Missing/Broken Teeth: No Heart: RRR Lungs: CTA Assessment and Plan Assessment Anesthesia Assessment: Anesthesia Plan Discussed Final Anesthetic Review NPO: Yes ASA Class: III Final Preanesthetic Review: No Changes in Pt Med Stat, Meds/Allgs Chart Reviewed, Consent Obtained/Reviewed and Anes Risks/Benef Reviewed Patient Risk: Low Procedure Risk: Low Anesthetic Plan Anesthetic Plan: MAC: Disposition: Standard PACU
--- NOTE | 2025-06-14 07:05 | MHC.SHP ---
Pre-Procedural Eval Section A - 24 Hr Update-Section A only Date of Service: 06/14/25 The patient is an INPATIENT: No The patient has been examined within 24 hours of the surgical procedure. The History & Physical has been completed within 30 days and I have reviewed it.: No Section B - Complete if H&P > 30 days Chief Complaint: screening Relevant Family History (Specify if Yes): No Relevant Social History: Tobacco Use (former smoker) Present Medications: see Short Stay Collaborative assessment Medical History: Significant History (Bipolar 2 disorder, major depressive episode Hepatitis C) History of Previous Operations: No relevant previous surgery Allergies: Allergies Allergy/AdvReac Type Severity Reaction Status Date / Time No Known Allergies Allergy Verified 12/11/24 09:05 Review of Systems Sugical H&P ROS: Negative: Constitution, Cardiovascular, Respiratory and Gastrointestinal Exam Surgical H&P Exam: Normal: Heart, Normal: Lungs, Normal: Extremities and Normal: Abdomen Plan Diagnosis/Plan: Unchanged I have reviewed the history and physical and performed a pertinent physical examination on my patient. No changes have occurred unless specified. Time Spent With Patient Time: Total time managing care of this patient today ____ minutes.
[2025-06-14 08:11] VITALS: BMI 34.3
[2025-06-14 08:25] LABS: UPreg QC Valid YES
[2025-06-14 08:28] VITALS: BP 110/62; PULSE 73; RESP 15; TEMP 36.5; O2SAT 98
[2025-06-14] MEDS: Lactated Ringers 1,000 ML 100 ML IVCONT (08:42)
--- NOTE | 2025-06-14 10:15 | P.OPN-COLO_ITS ---
Colonoscopy Operative Note Operative Note Date of Service: 06/14/25 Narrative: COLONOSCOPY TILL CECUM WITH BIOPSIES Pre-op diagnosis: Colon cancer screening (First colon). Post-op diagnosis:? Colon polyps, hemorrhoids Endoscopist:? Nilton Bal MD Anesthesia:?MAC Consent: Indications for the procedure and potential complications of bleeding, perforation, reaction to medications and missed diagnosis were discussed with the patient and informed consent was obtained. Instrument: Olympus PCF H 190 L variable stiffness pediatric colonoscope Monitoring: Vital signs and clinical assessment, intermittent blood pressure monitoring, continuous EKG monitoring, Pulse oximetry and Carbon Dioxide monitoring were done throughout the procedure. Please see anesthesia flowsheet. Colon withdrawl time was 18 minutes. Procedure: The patient was placed in the left lateral decubitis position and pre-procedure medications were administered. After a digital rectal examination of the ano-rectum, the video colonoscope was inserted into the rectum and advanced through the colon to the cecum. The colonoscope was slowly withdrawn in a retrograde panoramic fashion and the colon mucosa was carefully examined including a retroflexed view of the rectum. Findings and interventions are described below. Procedure Difficulty: Colon was long and tortuous and there was some loop formation Findings: Terminal Ileum: Not evaluated Cecum: Normal Ascending Colon: Normal Transverse Colon: A 3-4 mm sessile polyp - removed with a cold biopsy Descending Colon: Normal Sigmoid Colon: Normal Rectum: A 2-3 mm diminutive appearing polyp - removed with a cold biopsy. Ano-rectum: Small internal hemorrhoids Colon preparation: Good after copious irrigation. [place] Bowel Preparation Scale Right colon; 2 Transverse colon: 2 Left colon; 2 (0 = Unprepared colon segment with mucosa not seen due to solid stool that cannot be cleared. 1 = Portion of mucosa of the colon segment seen, but other areas of the colon segment not well seen due to staining, residual stool and/or opaque liquid. 2 = Minor amount of residual staining, small fragments of stool and/or opaque liquid, but mucosa of colon segment seen well. 3 = Entire mucosa of colon segment seen well with no residual staining, small fragments of stool or opaque liquid) Impression and Post Procedure Diagnosis: Colonoscopy Findings: Two small polyps were removed Small hemorrhoids on retroflexed exam. Plan: I will send a letter with biopsy results Repeat Colonoscopy in 5 years if polyps are adenomatous and 10 year if polyps are hyperplastic. (Dulcolax 10 mg daily x 5 days prior to next colonoscopy) Above findings were reviewed with the patient and relevant handouts were given and the discharge area.
[2025-06-14 10:18] VITALS: BP 106/71; PULSE 81; RESP 16; TEMP 37.1; O2SAT 96
[2025-06-14 10:30] VITALS: BP 113/68; PULSE 70; RESP 16; O2SAT 99
[2025-06-14 10:45] VITALS: BP 118/73; PULSE 72; RESP 16; O2SAT 99
[2025-06-14 11:00] VITALS: BP 111/64; PULSE 72; RESP 16; O2SAT 99
== END 2025-06-14 11:31 | disposition home or self-care (01) ==
PROVIDERS: Nurse Practitioner; PCP Nurse Practitioner Family; Visit Provider Internal Medicine Gastroenterology
PROC: 0DJD8ZZ Inspection of Lower Intestinal Tract, Via Natural or Artificial Opening Endoscopic (ICD-10-PCS; CPT 45378; principal; 2025-06-14 09:20)
DX: Z12.11 Encounter for screening for malignant neoplasm of colon (principal); D12.3 Benign neoplasm of transverse colon; K63.89 Other specified diseases of intestine; K56.2 Volvulus; K64.8 Other hemorrhoids; E11.9 Type 2 diabetes mellitus without complications; I10 Essential (primary) hypertension; E78.00 Pure hypercholesterolemia, unspecified; B19.20 Unspecified viral hepatitis C without hepatic coma; D50.9 Iron deficiency anemia, unspecified; G47.30 Sleep apnea, unspecified; Z99.89 Dependence on other enabling machines and devices; F90.0 Attention-deficit hyperactivity disorder, predominantly inattentive type; F17.200 Nicotine dependence, unspecified, uncomplicated; Z79.899 Other long term (current) drug therapy
CPT/HCPCS: 45380; 81025; 88305; J2003; J2704

== ENCOUNTER → 2025-06-14 07:32 | Outpatient (BNV) | payer BC, SELFPAY | PROVIDERS: PCP Nurse Practitioner Family; Visit Provider Internal Medicine Gastroenterology | DX: Z12.11 Encounter for screening for malignant neoplasm of colon (principal); D12.3 Benign neoplasm of transverse colon; D12.8 Benign neoplasm of rectum; K64.8 Other hemorrhoids | CPT/HCPCS: 45380 ==

== ENCOUNTER 2025-07-16 08:05 | Outpatient (REF) | payer BC, SELFPAY ==
[2025-07-16 11:54] LABS: Cholesterol 206 mg/dL (<200); HDL Cholesterol 39 mg/dL (>40); Triglycerides 159 mg/dL (<150)
== END 2025-07-16 08:06 | disposition home or self-care (01) ==
LOC: HO.WFDLDS 08:05
PROVIDERS: Visit Provider Nurse Practitioner Family
DX: E78.5 Hyperlipidemia, unspecified (principal)
CPT/HCPCS: 36415; 80061

== ENCOUNTER 2025-07-20 08:21 | Outpatient (AMB) | payer BC, SELFPAY ==
--- NOTE | 2025-07-20 08:25 | A.OFFPC_ITS ---
Vital Signs 07/20/25 08:30 Height 5 ft 2 in Weight 191 lb 8 oz BMI 35.0 BP 111/62 Blood Pressure Location Lt brachial Position Sitting Respiration 16 Pulse 72 Pulse Source Pulse Oximeter Temp 97.8 F Temp Source Oral Pulse Oximetry (%) 98 Oxygen Delivery Method Room Air Intake Visit Reasons: f/u for HTN and HLD. 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 Is last menstrual period known: Yes Last menstrual period: 07/20/25 Post menopausal: No Patient : No Allergies No Known Allergies Allergy (Verified 07/20/25 08:37) Medication List - Last Reconciled 07/20/25 by Bunny Lamas CNP amlodipine 10 mg PO DAILY 30 days bupropion HCl SR (Wellbutrin SR) 150 mg PO TID buspirone 30 mg PO BID ferrous sulfate 325 mg PO DAILY 30 days hydrochlorothiazide 12.5 mg PO QAM 30 days hydroxyzine HCl 25 mg PO BEDTIME PRN magnesium 400 mg PO BEDTIME melatonin 3 mg PO BEDTIME PRN Tobacco use date assessed: 07/20/25 Dental Screening Dental Screen Date: 07/20/25 Did you have a dental visit in the last 12 months?: No Did you have a dental problem in the last 6 months where you did not have access to dental care?: No Was dental information given to patient?: No HPI HPI Comments History of Present Illness Details 49-year-old female presents for hyperten jonathan and hyperlipidemia follow- up. She admits to taking her medications as prescribed without adverse reactions. She notes that she has been making healthy lifestyle changes. No acute symptoms at this time. [facility] Medical History Prediabetes Anxiety Hypercholesteremia Depression ADHD HTN (hypertension) Iron deficiency anemia Bipolar 2 disorder, major depressive episode Hepatitis C Surgical History (Updated 06/14/25 @ 08:10 by Kamila Castillo RN) History of carpal tunnel release of both wrists Family History Other Mental health disorder Substance abuse Social History Housing: House Patient Tobacco Use Status: Current everyday Tobacco user Tobacco use type: Smokeless Tobacco Cigarettes Per Day: 10 Years Smoked: 13 e-Cigarette/Vaping Use: Currently Using Second Hand Smoke Exposure: No service: No Current occupational status: employed Current occupation: [employer] Current occupational exposures/hazards: No Cognitive needs: No Hearing needs: No Vision needs: No Female Reproductive History Menstrual Date of last menstrual period: 07/20/25 Questionnaire Thrive Questionnaire Date Thrive assessed: 12/11/24 I am a: Patient What is your living situation today?: I have a steady place to live Within the past 12 months, did the food you bought not last and you didn't have the money to get more?: Never true Within the past 12 months, did you worry whether your food would run out before you got money to buy more?: Never true Do you have trouble paying for medicines?: No Do you have trouble getting transportation to medical appointments?: No Do you have trouble paying your heating and electricity bill?: No Do you have trouble taking care of your child, family member or friend?: No Do you have trouble with day-to-day activities such as bathing, preparing meals, shopping, managing finances, etc.?: No Are you currently unemployed and looking for a job?: No Are you interested in more education?: No Please select the resources that you would like help with: None Currently or been in a relationship where the following occur: No concerns reported THRIVE Score: 0 JUAN-7 AMB Questionnaire JUAN-7 Date JUAN - 7 assessed: 06/02/24 Source: Developed by Drs. Humberto Gutiérrez, Gail Jauregui, Don Madsen and colleagues, with an educational jessika from [employer]. Review of Systems Const Details: Const Denies chills, Denies fatigue, Denies fever(s), Denies headache(s) and Denies weakness ENT Denies dizziness and Denies headache(s) Card Denies chest pain, Denies lightheadedness, Denies dyspnea and Denies other (Palpitations) Resp Denies cough, Denies dyspnea, Denies wheezing and Denies other ( shortness of breath) GI Denies abdominal pain, Denies melena, Denies hematochezia, Denies change in bowel habits, Denies dyspepsia and Denies nausea Denies hematuria and Denies dysuria Musc Denies abnormal gait, Denies myalgias, Denies arthralgias, Denies numbness and Denies tingling Skin/Breast Denies rash, Denies unusual bruising and Denies wounds Neuro Denies abnormal gait, Denies dizziness, Denies headache(s), Denies memory loss, Denies numbness, Denies Sensory deficit (Neuro), Denies tingling and Denies weakness Psych Denies anxiety, Denies depression, Denies memory loss Endo Denies cold intolerance, Denies fatigue, Denies heat intolerance, Denies p olydipsia and Denies polyuria Aller/Immun Denies wheezing Physical exam (Primary Care) Vital Signs: Last Vital Signs Temp 97.8 F 07/20/25 08:30 Pulse 72 07/20/25 08:30 Resp 16 07/20/25 08:30 BP 111/62 07/20/25 08:30 Pulse Ox 98 07/20/25 08:30 Oxygen Delivery Method Room Air 07/20/25 08:30 BMI result Body Mass Index 35.0 Tobacco/Smoking Status: Tobacco use Status Tobacco use date assessed 07/20/25 07/20/25 08:33 Patient Tobacco Use Status Current everyday Tobacco 07/20/25 08:27 Tobacco use type Smokeless Tobacco 07/20/25 08:27 e-Cigarette/Vaping Use Currently Using 07/20/25 08:27 Thrive Assessment: Date of Thrive Assessment Date Thrive assessed 12/11/24 07/20/25 08:27 Currently or been in a relationship where the following occur: No concerns reported Const Other: General: no acute distress and well developed Nutritional Appearance: well nourished Orientation/consciousness: patient oriented x3 HENWA Head: Yes normocephalic and Yes atraumatic Eyes General: appearance normal, both eyes and all related structures Pupils: Equal, round and reactive pupils present EOM: EOMs intact bilaterally Resp Effort & Inspection: normal respiratory effort Auscultation: clear to auscultation bilaterally Cardio Rate: regular rate Rhythm: regular rhythm Heart sounds: S1 normal heart sound present, S2 normal heart sound present, no gallops, no murmurs and no rubs GI Palpation (GI): No Abdominal aortic bruit present, Soft to palpation, nontender, No hepatosplenomegaly present and No Rebound tenderness present Auscultation: normal bowel sounds General: Yes no CVA tenderness Back/Spine/Pelvis Back: no CVA tenderness Cervical Spine: cervical ROM normal and No Cervical spine tenderness Thoracic/Lumbar Spine: thoraco-lumbar ROM normal, No pain with thoraco-lumbar ROM, No thoracic spinal tenderness and No lumbar spinal tenderness Extrem General: Yes normal to inspection, No edema and No calf tenderness Skin General: warm and dry. Normal skin color. Normal skin turgor Neuro General: patient oriented x3, gait normal and no focal neuro deficit Cranial nerves: Yes Equal, round and reactive pupils present Cognition (Neuro): normal cognition Gait exam (Neuro): Normal gait present Sensory Exam: No Sensory deficit (Neuro) Psych Appearance: grossly normal Affect: normal affect Attitude: cooperative Thought process: Normal thought process present Coding Level of Care Code Est Pt Level 3 (15506) Diagnoses Primary hypertension I10 Hypertension type: primary hypertension Hyperlipidemia E78.5 Laboratory exam ordered as part of routine general medical examination Z00.00 Assessment & Plan Assessment & Plan (1) Hypertension: Code(s): I10 - Essential (primary) hypertension Category: Medical Qualifiers: Hypertension type: primary hypertension Qualified Code(s): I10 - Essential (primary) hypertension Plan: Blood pressure is 111/62, within goal of less than 140/90. Continue current treatment regimen. Low-sodium diet encouraged. Will continue to monitor. Perform lab work in follow-up for an extended physical exam in 1 month. Return sooner with symptoms or concerns. Verbalized understanding and agreed with the plan. (2) Hyperlipidemia: Code(s): E78.5 - Hyperlipidemia, unspecified Category: Medical Plan: Recent triglyceride level is slightly elevated, 159, previous level was 70, total cholesterol is 206 from 193, LDL is 136 from 123, HDL is slightly low 39. Declines antilipemic treatment at this time and notes she will continue to make lifestyle changes. Advised to limit foods high in saturated fat and avoid foods high in trans fat. Routine exercise encouraged. Perform lab work before next visit. Will recheck lipid panel in 2 months. Verbalized understanding and agreed with the plan. (3) Laboratory exam ordered as part of routine general medical examination: Code(s): Z00.00 - Encounter for general adult medical examination without abnormal findings Category: Medical Plan: Fasting labs ordered as part of a complete physical exam. Advised to fast for at least 10 hours before getting labs drawn. May drink water Verbalized understanding and agreed with treatment plan. Orders: Orders Comprehensive [place]. Panel Fast Today Z00.00 - Encounter for general adult medical examination without abnormal findings Vitamin D 25-OH Total Today Z00.00 - Encounter for general adult medical examination without abnormal findings Hemoglobin A1c Today Z00.00 - Encounter for general adult medical examination without abnormal findings Complete Blood Count Auto Diff Today Z00.00 - Encounter for general adult medical examination without abnormal findings Microalbumin, Random (w Creat) Today Z00.00 - Encounter for general adult medical examination without abnormal findings TSH reflex Free T4 Today Z00.00 - Encounter for general adult medical examination without abnormal findings UA CC w/rflx Micro + Cult Today Z00.00 - Encounter for general adult medical examination without abnormal findings
[2025-07-20 08:30] VITALS: BP 111/62; PULSE 72; RESP 16; TEMP 36.6; O2SAT 98; BMI 35.0
== END 2025-07-20 08:54 | disposition home or self-care (01) ==
LOC: HO.HMCFM 08:22
PROVIDERS: PCP Nurse Practitioner Family; Visit Provider Nurse Practitioner Family
DX: I10 Essential (primary) hypertension (principal); E78.5 Hyperlipidemia, unspecified; Z00.00 Encounter for general adult medical examination without abnormal findings